=== PATIENT | male | born 1970 | race Caucasian/White ===

== ENCOUNTER 2016-12-27 20:23 | Emergency (ER) | payer BC, OTHER ==
[2016-12-27] MEDS ORDERED: IBUPROFEN 600 MG TAB As Ordered ONE (21:08)
--- NOTE | 2016-12-27 22:03 | EDDOCDS ---
Physician Documentation [facility] Name: Jin Chahal Age: 46 yrs Sex: Male : 1970 Arrival Date: 12/27/2016 Time: 20:23 Bed I8 / 16 Private MD: Cathleen Gleason Abdul Disposition: 12/27/16 21:46 Discharged to Home/Self Care. Impression: Intercostal pain. - Condition is Stable. - Discharge Instructions: Chest Wall Pain, Costochondritis. - Prescriptions for Ibuprofen 600 mg Oral Tablet - take 1 tablet by ORAL route every 6 hours As needed take with food; 30 tablet. - Medication Reconciliation, Local Pharmacy Hours form. - Follow up: Cathleen Gleason; When: 4 - 5 days; Reason: Recheck today's complaints, Continuance of care. - Problem is an ongoing problem. - Symptoms are unchanged. Historical: - Allergies: no known allergies; - Home Meds: 1. acetaminophen-codeine 300-30 mg oral tab every 4-6 hours 2. amoxicillin 875 mg Oral tab 1 tab every 12 hours - PMHx: Sleep Apnea w/ CPAP; - PSHx: Knee surgery- Right; - Social history: Smoking status: Patient states was never smoker of tobacco. No barriers to communication noted, The patient speaks fluent Divehi. - Family history: No immediate family members are acutely ill. - : The pt / caregiver states he / she is not on anticoagulants. Home medication list is obtained from the patient. - Exposure Risk Screening:: None identified. Vital Signs: 12/27 20:25 BP 131 / 80; Pulse 90; Resp 18 S; Temp 99.6(O); Pulse Ox 96% on R/A; Weight 83.91 kg / gr2 184.99 lbs (R); Height 6 ft. 0 in. (182.88 cm) (R); Pain 7/10; 22:00 BP 137 / 68; Pulse 87; Resp 17; Temp 98.2(TE); Pulse Ox 99% ; mb9 20:25 Body Mass Index 25.09 (83.91 kg, 182.88 cm) gr2 MDM: 20:42 ECG WITH READING ER PHYS+CARDIAG ordered. EDMS 21:07 Ibuprofen 600 mg PO once ordered. ke 21:08 Rib Unilat W/PA Chest Only Ordered. EDMS Administered Medications: 21:11 Drug: Ibuprofen 600 mg [ibuprofen 600 mg tablet (1 tabs)] Route: PO; af2 Signatures: Dispatcher [employer] EDNathaniel Tavera FNP FNP ke Smith, Mallory, RN RN ms18 Dashawn Holt RN RN mb9 Roxane Guzman RN af2 MTDD
--- NOTE | 2016-12-27 22:03 | EDDOCDS ---
Nurse's Notes [facility] Name: Jin Chahal Age: 46 yrs Sex: Male : 1970 Arrival Date: 12/27/2016 Time: 20:23 Bed I8 / 16 Private MD: Cathleen Gleason Abdul Diagnosis: Intercostal pain Presentation: 12/27 20:37 Presenting complaint: Patient states: that he has some pain to his L rib cage that ms18 started last night. Pt also c/o cough and fever. Pt also reports some SOB and sweating. Adult Sepsis Screening: The patient does not have new or worsening altered mentation. Patient's respiratory rate is less than 22. Systolic blood pressure is greater than 100. Patient has a qSOFA score of 0- Negative Sepsis Screen. Suicide/Homicide risk assessment- the patient denies having any suicidal and/or homicidal ideations and does not present with any other emotional, behavioral or mental health complaints. 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 Transition of care: patient was not received from another setting of care. 20:37 Acuity: REMY Level 3 ms18 20:37 Method Of Arrival: Walkin/Carried/Asstd ms18 Triage Assessment: 20:37 General: Appears in no apparent distress, comfortable, Behavior is appropriate for age, ms18 cooperative, pleasant. Pain: Location: diaphragm, left lateral anterior chest and left breast Pain currently is 7 out of 10 on a pain scale. HIV screening NA for this visit Offered previously. Neurological: No deficits noted. Respiratory: Airway is patent Respiratory effort is even, unlabored. Derm: Skin is pink, warm & dry. Historical: - Allergies: no known allergies; - Home Meds: 1. acetaminophen-codeine 300-30 mg oral tab every 4-6 hours 2. amoxicillin 875 mg Oral tab 1 tab every 12 hours - PMHx: Sleep Apnea w/ CPAP; - PSHx: Knee surgery- Right; - Social history: Smoking status: Patient states was never smoker of tobacco. No barriers to communication noted, The patient speaks fluent Brazilian. - Family history: No immediate family members are acutely ill. - : The pt / caregiver states he / she is not on anticoagulants. Home medication list is obtained from the patient. - Exposure Risk Screening:: None identified. Screenin:07 Screening information is obtained from the patient. Fall risk: No risks identified. mb9 Assistance ADL's: requires no assistance with activities of daily living. Abuse/DV Screen: The patient / caregiver reports he/she is: not in a situation that causes fear, pain or injury. Nutritional screening: No deficits noted. Advance Directives: There is no active DNR order. home support is adequate. Assessment: 21:07 General: Appears in no apparent distress, Behavior is appropriate for age, cooperative. mb9 Pain: Location: diaphragm Pain currently is 7 out of 10 on a pain scale. Respiratory: Airway is patent Respiratory effort is even, unlabored, Breath sounds are clear bilaterally. 22:00 Reassessment: Patient appears in no apparent distress at this time. General: Appears in mb9 no apparent distress, Behavior is fussy. Pain: Location: left lateral anterior chest Pain currently is 6 out of 10 on a pain scale. Respiratory: Airway is patent Respiratory effort is even, unlabored. Vital Signs: 20:25 BP 131 / 80; Pulse 90; Resp 18 S; Temp 99.6(O); Pulse Ox 96% on R/A; Weight 83.91 kg gr2 (R); Height 6 ft. 0 in. (182.88 cm) (R); Pain 7/10; 22:00 BP 137 / 68; Pulse 87; Resp 17; Temp 98.2(TE); Pulse Ox 99% ; mb9 20:25 Body Mass Index 25.09 (83.91 kg, 182.88 cm) gr2 Vitals: 20:25 Log In Time: December 27, 2016 at 20:25. gr2 ED Course: 20:24 Patient visited by Carolann Chinchilla. gr2 20:24 Cathleen Gleason is Private Physician. gr2 20:24 Patient moved to Waiting gr2 20:26 Patient visited by Carolann Chinchilla. gr2 20:26 Patient moved to Pre RCE gr2 20:38 Triage Initiated ms18 20:42 Patient moved to PR2 / 26 ms18 20:49 EKG done. (by ED staff). Reviewed by Fernando Rdz DO. mdr 20:50 Patient visited by Gary Juan PCA. mdr 20:50 Patient moved to Pre RCE ms18 20:57 Patient moved to I8 / 16 jmb 20:58 ElsNathaniel woodard FNP is [facility]. ke 20:58 Patient visited by Nathaniel Caldwell FNP. ke 20:59 Patient visited by Nathaniel Caldwell FNP. ke 21:07 The patient / caregiver is instructed regarding the plan of care and ED course. mb9 21:31 Patient visited by Nathaniel Caldwell FNP. ke 21:45 Cathleen Gleason is Referral Physician. ke 22:00 No IV's were initiated during this patient's visit. No procedures done that require mb9 assistance. Administered Medications: 21:11 Drug: Ibuprofen 600 mg [ibuprofen 600 mg tablet (1 tabs)] Route: PO; af2 Order Results: There are currently no results for this order. Outcome: 21:46 Discharge ordered by Provider. ke 22:00 Discharge Assessment: Patient awake, alert and oriented x 3. No cognitive and/or mb9 functional deficits noted. Patient verbalized understanding of disposition instructions. patient administered narcotics - no. The following High Risk Discharge criteria are identified: None. Discharged to home ambulatory. Condition: good Condition: stable Condition: improved. Discharge instructions given to patient, Instructed on discharge instructions, follow up and referral plans. medication usage, Demonstrated understanding of instructions, medications, Pt was receptive of discharge instructions/ teaching. Prescriptions given X 1. No special radiology studies were completed. Property :Personal belongings accompany Pt. 22:02 Patient left the ED. jael Signatures: Nathaniel Caldwell FNP FNP ke Raymond, Gainslee gr2 Joni MonRN RN Maria T Elliott,RN RN ms18 Dashawn Holt,RN RN mb9 Roxane Guzman RN RN af2 Gary Juan, RAYMOND WOODWORK SALVAGE INSPECTOR mdr MTDD
--- NOTE | 2016-12-27 22:04 | ECGEPIP ---
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
--- NOTE | 2016-12-28 08:13 | REP ---
Clinical: Chest pain Technique: Frontal view of the chest with multiple views of the left hemithorax. Findings: Frontal view of the chest demonstrates bibasilar atelectasis (left greater than right) and small pleural effusion/reaction cannot be excluded. No pneumothorax. Multiple views of the left hemithorax demonstrates no obvious acute rib fracture or pathology. Impression: Bibasilar atelectasis and possible small pleural reaction. No left rib fracture. Signed by Berry Jones MD 12/28/2016 08:04 A
--- NOTE | 2016-12-29 23:03 | EDDOCDS ---
Nurse's Notes [facility] Name: Reinier Chahal Age: 46 yrs Sex: Male : 1970 Arrival Date: 12/27/2016 Time: 20:23 Bed I8 / 16 Private MD: Cathleen Gleason Abdul Diagnosis: Intercostal pain Presentation: 12/27 20:37 Presenting complaint: Patient states: that he has some pain to his L rib cage that ms18 started last night. Pt also c/o cough and fever. Pt also reports some SOB and sweating. Adult Sepsis Screening: The patient does not have new or worsening altered mentation. Patient's respiratory rate is less than 22. Systolic blood pressure is greater than 100. Patient has a qSOFA score of 0- Negative Sepsis Screen. Suicide/Homicide risk assessment- the patient denies having any suicidal and/or homicidal ideations and does not present with any other emotional, behavioral or mental health complaints. 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 Transition of care: patient was not received from another setting of care. 20:37 Acuity: REMY Level 3 ms18 20:37 Method Of Arrival: Walkin/Carried/Asstd ms18 Triage Assessment: 20:37 General: Appears in no apparent distress, comfortable, Behavior is appropriate for age, ms18 cooperative, pleasant. Pain: Location: diaphragm, left lateral anterior chest and left breast Pain currently is 7 out of 10 on a pain scale. HIV screening NA for this visit Offered previously. Neurological: No deficits noted. Respiratory: Airway is patent Respiratory effort is even, unlabored. Derm: Skin is pink, warm & dry. Historical: - Allergies: no known allergies; - Home Meds: 1. acetaminophen-codeine 300-30 mg oral tab every 4-6 hours 2. amoxicillin 875 mg Oral tab 1 tab every 12 hours - PMHx: Sleep Apnea w/ CPAP; - PSHx: Knee surgery- Right; - Social history: Smoking status: Patient states was never smoker of tobacco. No barriers to communication noted, The patient speaks fluent Venezuelan. - Family history: No immediate family members are acutely ill. - : The pt / caregiver states he / she is not on anticoagulants. Home medication list is obtained from the patient. - Exposure Risk Screening:: None identified. Screenin:07 Screening information is obtained from the patient. Fall risk: No risks identified. mb9 Assistance ADL's: requires no assistance with activities of daily living. Abuse/DV Screen: The patient / caregiver reports he/she is: not in a situation that causes fear, pain or injury. Nutritional screening: No deficits noted. Advance Directives: There is no active DNR order. home support is adequate. Assessment: 21:07 General: Appears in no apparent distress, Behavior is appropriate for age, cooperative. mb9 Pain: Location: diaphragm Pain currently is 7 out of 10 on a pain scale. Respiratory: Airway is patent Respiratory effort is even, unlabored, Breath sounds are clear bilaterally. 22:00 Reassessment: Patient appears in no apparent distress at this time. General: Appears in mb9 no apparent distress, Behavior is fussy. Pain: Location: left lateral anterior chest Pain currently is 6 out of 10 on a pain scale. Respiratory: Airway is patent Respiratory effort is even, unlabored. Vital Signs: 20:25 BP 131 / 80; Pulse 90; Resp 18 S; Temp 99.6(O); Pulse Ox 96% on R/A; Weight 83.91 kg gr2 (R); Height 6 ft. 0 in. (182.88 cm) (R); Pain 7/10; 22:00 BP 137 / 68; Pulse 87; Resp 17; Temp 98.2(TE); Pulse Ox 99% ; mb9 20:25 Body Mass Index 25.09 (83.91 kg, 182.88 cm) gr2 Vitals: 20:25 Log In Time: December 27, 2016 at 20:25. gr2 ED Course: 20:24 Patient visited by Carolann Chinchilla. gr2 20:24 Cathleen Gleason is Private Physician. gr2 20:24 Patient moved to Waiting gr2 20:26 Patient visited by Carolann Chinchilla. gr2 20:26 Patient moved to Pre RCE gr2 20:38 Triage Initiated ms18 20:42 Patient moved to PR2 / 26 ms18 20:49 EKG done. (by ED staff). Reviewed by Rita Hodges DO. mdr 20:50 Patient visited by Gary Juan PCA. mdr 20:50 Patient moved to Pre RCE ms18 20:57 Patient moved to I8 / 16 jmb 20:58 ElsNathaniel woodard FNP is [facility]. ke 20:58 Patient visited by Nathaniel Caldwell FNP. ke 20:59 Patient visited by Nathaniel Caldwell FNP. ke 21:07 The patient / caregiver is instructed regarding the plan of care and ED course. mb9 21:31 Patient visited by Nathaniel Caldwell FNP. ke 21:45 Cathleen Gleason is Referral Physician. ke 22:00 No IV's were initiated during this patient's visit. No procedures done that require mb9 assistance. 22:35 EKG-ADULT Returned. EDMS 22:46 [facility] Payment Agreement was scanned into [employer] and attached to record. gjb 12/28 08:33 Rib Unilat W/PA Chest Only Returned. EDMS 13:17 T-Sheet-- Draft Copy was scanned into [employer] and attached to record. gb 13:18 ECG/EKG was scanned into [employer] and attached to record. 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: ; : 1970 Requested By: RITA HODGES; Order Number: [id number] Reading MD: Hugo Poon; Measurements; Intervals [place]; Rate: 80 P: 48; NH: 179 QRS: 28; QRSD: 89 T: 55; QT: 368; QTc: 426; Interpretive Statements; SINUS RHYTHM; ; ; Electronically Signed On 12-27-2016 22:03:41 EST by Hugo Poon; Radiology Order: Rib Unilat W/PA Chest Only Test: Rib Unilat W/PA Chest Only REASON FOR EXAMINATION: Chest Pain; Clinical: Chest pain; ; Technique: Frontal view of the chest with multiple views of the left; hemithorax.; ; Findings:; Frontal view of the chest demonstrates bibasilar atelectasis (left greater than; right) and small pleural effusion/reaction cannot be excluded. No pneumothorax.; Multiple views of the left hemithorax demonstrates no obvious acute rib fracture; or pathology.; ; Impression:; Bibasilar atelectasis and possible small pleural reaction.; No left rib fracture.; ; ; Signed by; Berry Jones MD 12/28/2016 08:04 A; Outcome: 21:46 Discharge ordered by Provider. sofia 22:00 Discharge Assessment: Patient awake, alert and oriented x 3. No cognitive and/or mb9 functional deficits noted. Patient verbalized understanding of disposition instructions. patient administered narcotics - no. The following High Risk Discharge criteria are identified: None. Discharged to home ambulatory. Condition: good Condition: stable Condition: improved. Discharge instructions given to patient, Instructed on discharge instructions, follow up and referral plans. medication usage, Demonstrated understanding of instructions, medications, Pt was receptive of discharge instructions/ teaching. Prescriptions given X 1. No special radiology studies were completed. Property :Personal belongings accompany Pt. 22:02 Patient left the ED. mb9 Signatures: Dispatcher [employer] EDMS Paris Arias, Reg Reg gb Nathaniel Caldwell, SLING OPERATOR SLING OPERATOR ke Carolann Chinchilla gr2 Joni MonRN RN Maria T Elliott,RN RN ms18 Dashawn Holt,RN RN mb9 Roxane Guzman RN RN af2 Gary Juan, RAYMOND MANAGER SIX SIGMA Kathy Perez Chart Complete MTDD
--- NOTE | 2016-12-29 23:03 | EDDOCDS ---
Physician Documentation [facility] Name: Jin Chahal Age: 46 yrs Sex: Male : 1970 Arrival Date: 12/27/2016 Time: 20:23 Bed I8 / 16 Private MD: Cathleen Gleason Abdul Disposition: 12/27/16 21:46 Discharged to Home/Self Care. Impression: Intercostal pain. - Condition is Stable. - Discharge Instructions: Chest Wall Pain, Costochondritis. - Prescriptions for Ibuprofen 600 mg Oral Tablet - take 1 tablet by ORAL route every 6 hours As needed take with food; 30 tablet. - Medication Reconciliation, Local Pharmacy Hours form. - Follow up: Cathleen Gleason; When: 4 - 5 days; Reason: Recheck today's complaints, Continuance of care. - Problem is an ongoing problem. - Symptoms are unchanged. Historical: - Allergies: no known allergies; - Home Meds: 1. acetaminophen-codeine 300-30 mg oral tab every 4-6 hours 2. amoxicillin 875 mg Oral tab 1 tab every 12 hours - PMHx: Sleep Apnea w/ CPAP; - PSHx: Knee surgery- Right; - Social history: Smoking status: Patient states was never smoker of tobacco. No barriers to communication noted, The patient speaks fluent Azeri. - Family history: No immediate family members are acutely ill. - : The pt / caregiver states he / she is not on anticoagulants. Home medication list is obtained from the patient. - Exposure Risk Screening:: None identified. Vital Signs: 12/27 20:25 BP 131 / 80; Pulse 90; Resp 18 S; Temp 99.6(O); Pulse Ox 96% on R/A; Weight 83.91 kg / gr2 184.99 lbs (R); Height 6 ft. 0 in. (182.88 cm) (R); Pain 7/10; 22:00 BP 137 / 68; Pulse 87; Resp 17; Temp 98.2(TE); Pulse Ox 99% ; mb9 20:25 Body Mass Index 25.09 (83.91 kg, 182.88 cm) gr2 MDM: 20:42 ECG WITH READING ER PHYS+CARDIAG ordered. EDMS 21:07 Ibuprofen 600 mg PO once ordered. ke 21:08 Rib Unilat W/PA Chest Only Ordered. EDMS 22:46 [facility] Payment Agreement was scanned into [employer] and attached to record. [facility] 22:46 Financial registration complete. [facility] 12/28 13:17 T-Sheet-- Draft Copy was scanned into [employer] and attached to record. gb 13:18 ECG/EKG was scanned into [employer] and attached to record. gb Administered Medications: 12/27 21:11 Drug: Ibuprofen 600 mg [ibuprofen 600 mg tablet (1 tabs)] Route: PO; af2 Signatures: Dispatcher [employer] EDMS Paris Arias, Reg Reg gb Nathaniel Caldwell, MOTOR BRAKEMAN Maria T Sprague RN RN ms18 Dashawn Holt RN RN mb9 Kathy Castaneda b Roxane Guzman RN af2 The chart was reviewed and I authenticate all verbal orders and agree with the evaluation and treatment provided.Attachments: 22:46 [facility] Payment Agreement [facility] 12/28 13:17 T-Sheet-- Draft Copy gb 13:18 ECG/EKG gb Chart Complete MTDD
--- NOTE | 2016-12-29 23:03 | EDDOCDS ---
Physician Documentation [facility] Name: Jin Chahal Age: 46 yrs Sex: Male : 1970 Arrival Date: 12/27/2016 Time: 20:23 Bed I8 / 16 Private MD: Cathleen Gleason Abdul Disposition: 12/27/16 21:46 Discharged to Home/Self Care. Impression: Intercostal pain. - Condition is Stable. - Discharge Instructions: Chest Wall Pain, Costochondritis. - Prescriptions for Ibuprofen 600 mg Oral Tablet - take 1 tablet by ORAL route every 6 hours As needed take with food; 30 tablet. - Medication Reconciliation, Local Pharmacy Hours form. - Follow up: Cathleen Gleason; When: 4 - 5 days; Reason: Recheck today's complaints, Continuance of care. - Problem is an ongoing problem. - Symptoms are unchanged. Historical: - Allergies: no known allergies; - Home Meds: 1. acetaminophen-codeine 300-30 mg oral tab every 4-6 hours 2. amoxicillin 875 mg Oral tab 1 tab every 12 hours - PMHx: Sleep Apnea w/ CPAP; - PSHx: Knee surgery- Right; - Social history: Smoking status: Patient states was never smoker of tobacco. No barriers to communication noted, The patient speaks fluent Greek. - Family history: No immediate family members are acutely ill. - : The pt / caregiver states he / she is not on anticoagulants. Home medication list is obtained from the patient. - Exposure Risk Screening:: None identified. Vital Signs: 12/27 20:25 BP 131 / 80; Pulse 90; Resp 18 S; Temp 99.6(O); Pulse Ox 96% on R/A; Weight 83.91 kg / gr2 184.99 lbs (R); Height 6 ft. 0 in. (182.88 cm) (R); Pain 7/10; 22:00 BP 137 / 68; Pulse 87; Resp 17; Temp 98.2(TE); Pulse Ox 99% ; mb9 20:25 Body Mass Index 25.09 (83.91 kg, 182.88 cm) gr2 MDM: 20:42 ECG WITH READING ER PHYS+CARDIAG ordered. EDMS 21:07 Ibuprofen 600 mg PO once ordered. ke 21:08 Rib Unilat W/PA Chest Only Ordered. EDMS 22:46 [facility] Payment Agreement was scanned into [employer] and attached to record. [facility] 22:46 Financial registration complete. [facility] 12/28 13:17 T-Sheet-- Draft Copy was scanned into [employer] and attached to record. gb 13:18 ECG/EKG was scanned into [employer] and attached to record. gb Administered Medications: 12/27 21:11 Drug: Ibuprofen 600 mg [ibuprofen 600 mg tablet (1 tabs)] Route: PO; af2 Signatures: Dispatcher [employer] EDMS Paris Arias, Reg Reg gb Nathaniel Caldwell, CADDY/CADDIE SUPERVISOR Maria T Sprague RN RN ms18 Dashawn Holt RN RN mb9 Kathy Castaneda b Roxane Guzman RN af2 The chart was reviewed and I authenticate all verbal orders and agree with the evaluation and treatment provided.Attachments: 22:46 [facility] Payment Agreement [facility] 12/28 13:17 T-Sheet-- Draft Copy gb 13:18 ECG/EKG gb Chart Complete MTDD
--- NOTE | 2017-01-01 11:20 | EDDOCDS ---
Physician Documentation [facility] Name: Jin Chahal Age: 46 yrs Sex: Male : 1970 Arrival Date: 12/27/2016 Time: 20:23 Bed I8 / 16 Private MD: Cathleen Gleason Abdul Disposition: 12/27/16 21:46 Discharged to Home/Self Care. Impression: Intercostal pain. - Condition is Stable. - Discharge Instructions: Chest Wall Pain, Costochondritis. - Prescriptions for Ibuprofen 600 mg Oral Tablet - take 1 tablet by ORAL route every 6 hours As needed take with food; 30 tablet. - Medication Reconciliation, Local Pharmacy Hours form. - Follow up: Cathleen Gleason; When: 4 - 5 days; Reason: Recheck today's complaints, Continuance of care. - Problem is an ongoing problem. - Symptoms are unchanged. Historical: - Allergies: no known allergies; - Home Meds: 1. acetaminophen-codeine 300-30 mg oral tab every 4-6 hours 2. amoxicillin 875 mg Oral tab 1 tab every 12 hours - PMHx: Sleep Apnea w/ CPAP; - PSHx: Knee surgery- Right; - Social history: Smoking status: Patient states was never smoker of tobacco. No barriers to communication noted, The patient speaks fluent Welsh. - Family history: No immediate family members are acutely ill. - : The pt / caregiver states he / she is not on anticoagulants. Home medication list is obtained from the patient. - Exposure Risk Screening:: None identified. Vital Signs: 12/27 20:25 BP 131 / 80; Pulse 90; Resp 18 S; Temp 99.6(O); Pulse Ox 96% on R/A; Weight 83.91 kg / gr2 184.99 lbs (R); Height 6 ft. 0 in. (182.88 cm) (R); Pain 7/10; 22:00 BP 137 / 68; Pulse 87; Resp 17; Temp 98.2(TE); Pulse Ox 99% ; mb9 20:25 Body Mass Index 25.09 (83.91 kg, 182.88 cm) gr2 MDM: 20:42 ECG WITH READING ER PHYS+CARDIAG ordered. EDMS 21:07 Ibuprofen 600 mg PO once ordered. ke 21:08 Rib Unilat W/PA Chest Only Ordered. EDMS 22:46 [facility] [place] Payment Agreement was scanned into [employer] and attached to record. [facility] 22:46 Financial registration complete. [facility] 12/28 13:17 T-Sheet-- Draft Copy was scanned into MEDHOST and attached to record. gb 13:18 ECG/EKG was scanned into MEDHOST and attached to record. gb Administered Medications: 12/27 21:11 Drug: Ibuprofen 600 mg [ibuprofen 600 mg tablet (1 tabs)] Route: PO; af2 Signatures: Dispatcher MedHost EDMS Paris Arias, Reg Reg gb Nathaniel Caldwell, POWER SHOVEL MECHANIC Maria T Sprague RN RN ms18 Dashawn Holt RN RN mb9 Kathy Castaneda b Roxane Guzman RN af2 The chart was reviewed and I authenticate all verbal orders and agree with the evaluation and treatment provided.Attachments: 22:46 [facility] Payment Agreement [facility] 12/28 13:17 T-Sheet-- Draft Copy gb 13:18 ECG/EKG gb MTDD
--- NOTE | 2017-01-01 11:20 | EDDOCDS ---
Nurse's Notes [facility] Name: Reinier Montoya Age: 46 yrs Sex: Male : 1970 Arrival Date: 12/27/2016 Time: 20:23 Bed I8 / 16 Private MD: Cathleen Gleason Abdul Diagnosis: Intercostal pain Presentation: 12/27 20:37 Presenting complaint: Patient states: that he has some pain to his L rib cage that ms18 started last night. Pt also c/o cough and fever. Pt also reports some SOB and sweating. Adult Sepsis Screening: The patient does not have new or worsening altered mentation. Patient's respiratory rate is less than 22. Systolic blood pressure is greater than 100. Patient has a qSOFA score of 0- Negative Sepsis Screen. Suicide/Homicide risk assessment- the patient denies having any suicidal and/or homicidal ideations and does not present with any other emotional, behavioral or mental health complaints. Status: Patient is not a director of casework services or dependent. Transition of care: patient was not received from another setting of care. 20:37 Acuity: REMY Level 3 ms18 20:37 Method Of Arrival: Walkin/Carried/Asstd ms18 Triage Assessment: 20:37 General: Appears in no apparent distress, comfortable, Behavior is appropriate for age, ms18 cooperative, pleasant. Pain: Location: diaphragm, left lateral anterior chest and left breast Pain currently is 7 out of 10 on a pain scale. HIV screening NA for this visit Offered previously. Neurological: No deficits noted. Respiratory: Airway is patent Respiratory effort is even, unlabored. Derm: Skin is pink, warm & dry. Historical: - Allergies: no known allergies; - Home Meds: 1. acetaminophen-codeine 300-30 mg oral tab every 4-6 hours 2. amoxicillin 875 mg Oral tab 1 tab every 12 hours - PMHx: Sleep Apnea w/ CPAP; - PSHx: Knee surgery- Right; - Social history: Smoking status: Patient states was never smoker of tobacco. No barriers to communication noted, The patient speaks fluent Grenadian. - Family history: No immediate family members are acutely ill. - : The pt / caregiver states he / she is not on anticoagulants. Home medication list is obtained from the patient. - Exposure Risk Screening:: None identified. Screenin:07 Screening information is obtained from the patient. Fall risk: No risks identified. mb9 Assistance ADL's: requires no assistance with activities of daily living. Abuse/DV Screen: The patient / caregiver reports he/she is: not in a situation that causes fear, pain or injury. Nutritional screening: No deficits noted. Advance Directives: There is no active DNR order. home support is adequate. Assessment: 21:07 General: Appears in no apparent distress, Behavior is appropriate for age, cooperative. mb9 Pain: Location: diaphragm Pain currently is 7 out of 10 on a pain scale. Respiratory: Airway is patent Respiratory effort is even, unlabored, Breath sounds are clear bilaterally. 22:00 Reassessment: Patient appears in no apparent distress at this time. General: Appears in mb9 no apparent distress, Behavior is fussy. Pain: Location: left lateral anterior chest Pain currently is 6 out of 10 on a pain scale. Respiratory: Airway is patent Respiratory effort is even, unlabored. Vital Signs: 20:25 BP 131 / 80; Pulse 90; Resp 18 S; Temp 99.6(O); Pulse Ox 96% on R/A; Weight 83.91 kg gr2 (R); Height 6 ft. 0 in. (182.88 cm) (R); Pain 7/10; 22:00 BP 137 / 68; Pulse 87; Resp 17; Temp 98.2(TE); Pulse Ox 99% ; mb9 20:25 Body Mass Index 25.09 (83.91 kg, 182.88 cm) gr2 Vitals: 20:25 Log In Time: December 27, 2016 at 20:25. gr2 ED Course: 20:24 Patient visited by Carolann Chinchilla. gr2 20:24 Cathleen Gleason is Private Physician. gr2 20:24 Patient moved to Waiting gr2 20:26 Patient visited by Carolann Chinchilla. gr2 20:26 Patient moved to Pre RCE gr2 20:38 Triage Initiated ms18 20:42 Patient moved to PR2 / 26 ms18 20:49 EKG done. (by ED staff). Reviewed by Rita Hodges DO. mdr 20:50 Patient visited by Gary Juan PCA. mdr 20:50 Patient moved to Pre RCE ms18 20:57 Patient moved to I8 / 16 jmb 20:58 ElsNathaniel woodard FNP [facility] ke 20:58 Patient visited by Nathaniel Caldwell FNP. ke 20:59 Patient visited by Nathaniel Caldwell FNP. ke 21:07 The patient / caregiver is instructed regarding the plan of care and ED course. mb9 21:31 Patient visited by Nathaniel Caldwell FNP. ke 21:45 Cathleen Gleason is Referral Physician. ke 22:00 No IV's were initiated during this patient's visit. No procedures done that require mb9 assistance. 22:35 EKG-ADULT Returned. EDMS 22:46 [facility] Payment Agreement was scanned into WorldPassKey and attached to record. gjb 12/28 08:33 Rib Unilat W/PA Chest Only Returned. EDMS 13:17 T-Sheet-- Draft Copy was scanned into WorldPass[employer] and attached to record. gb 13:18 ECG/EKG was scanned into WorldPass[employer] and attached to record. 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: ; : 1970 Requested By: RITA HODGES; Order Number: [id number] Reading MD: Hugo Poon; Measurements; Intervals [place]; Rate: 80 P: 48; MS: 179 QRS: 28; QRSD: 89 T: 55; QT: 368; QTc: 426; Interpretive Statements; SINUS RHYTHM; ; ; Electronically Signed On 12-27-2016 22:03:41 EST by Hugo Poon; Radiology Order: Rib Unilat W/PA Chest Only Test: Rib Unilat W/PA Chest Only REASON FOR EXAMINATION: Chest Pain; Clinical: Chest pain; ; Technique: Frontal view of the chest with multiple views of the left; hemithorax.; ; Findings:; Frontal view of the chest demonstrates bibasilar atelectasis (left greater than; right) and small pleural effusion/reaction cannot be excluded. No pneumothorax.; Multiple views of the left hemithorax demonstrates no obvious acute rib fracture; or pathology.; ; Impression:; Bibasilar atelectasis and possible small pleural reaction.; No left rib fracture.; ; ; Signed by; Berry Jones MD 12/28/2016 08:04 A; Outcome: 21:46 Discharge ordered by Provider. sofia 22:00 Discharge Assessment: Patient awake, alert and oriented x 3. No cognitive and/or mb9 functional deficits noted. Patient verbalized understanding of disposition instructions. patient administered narcotics - no. The following High Risk Discharge criteria are identified: None. Discharged to home ambulatory. Condition: good Condition: stable Condition: improved. Discharge instructions given to patient, Instructed on discharge instructions, follow up and referral plans. medication usage, Demonstrated understanding of instructions, medications, Pt was receptive of discharge instructions/ teaching. Prescriptions given X 1. No special radiology studies were completed. Property :Personal belongings accompany Pt. 22:02 Patient left the ED. mb9 Addendum: 01/01/2017 11:14 Narrative: X-ray results from 12/27/2016 reviewed with Anton Caldwell COUTIERIER on 12/29/2016 with malvin Ortega, market research specialist Nurse that day. Message left that day for patient to call us and be given recommendations of f/u with PCP for repeat CXR. No response back from patient and another message left at patient's residence ([phone]). Signatures: Dispatcher MedHost EDMS Jackie Patterson RN RN Paris Wharton, Reg Reg gb Nathaniel Caldwell, STAFF INTERPRETER STAFF INTERPRETER Carolann Perez gr2 Joni MonRN RN Maria T Elliott,ALEISHA RN ms18 Dashawn Holt,ALEISHA RN mb9 Roxane Guzman RN RN af2 Gary Juan, [facility] REG[employer]AL AGRONOMIST Kathy Perez MTDD
--- NOTE | 2017-01-01 11:20 | EDDOCDS ---
Physician Documentation [facility] Name: Jin Chahal Age: 46 yrs Sex: Male : 1970 Arrival Date: 12/27/2016 Time: 20:23 Bed I8 / 16 Private MD: Cathleen Gleason Abdul Disposition: 12/27/16 21:46 Discharged to Home/Self Care. Impression: Intercostal pain. - Condition is Stable. - Discharge Instructions: Chest Wall Pain, Costochondritis. - Prescriptions for Ibuprofen 600 mg Oral Tablet - take 1 tablet by ORAL route every 6 hours As needed take with food; 30 tablet. - Medication Reconciliation, Local Pharmacy Hours form. - Follow up: Cathleen Gleason; When: 4 - 5 days; Reason: Recheck today's complaints, Continuance of care. - Problem is an ongoing problem. - Symptoms are unchanged. Historical: - Allergies: no known allergies; - Home Meds: 1. acetaminophen-codeine 300-30 mg oral tab every 4-6 hours 2. amoxicillin 875 mg Oral tab 1 tab every 12 hours - PMHx: Sleep Apnea w/ CPAP; - PSHx: Knee surgery- Right; - Social history: Smoking status: Patient states was never smoker of tobacco. No barriers to communication noted, The patient speaks fluent Korean. - Family history: No immediate family members are acutely ill. - : The pt / caregiver states he / she is not on anticoagulants. Home medication list is obtained from the patient. - Exposure Risk Screening:: None identified. Vital Signs: 12/27 20:25 BP 131 / 80; Pulse 90; Resp 18 S; Temp 99.6(O); Pulse Ox 96% on R/A; Weight 83.91 kg / gr2 184.99 lbs (R); Height 6 ft. 0 in. (182.88 cm) (R); Pain 7/10; 22:00 BP 137 / 68; Pulse 87; Resp 17; Temp 98.2(TE); Pulse Ox 99% ; mb9 20:25 Body Mass Index 25.09 (83.91 kg, 182.88 cm) gr2 MDM: 20:42 ECG WITH READING ER PHYS+CARDIAG ordered. EDMS 21:07 Ibuprofen 600 mg PO once ordered. ke 21:08 Rib Unilat W/PA Chest Only Ordered. EDMS 22:46 [facility] [place] [place] Payment Agreement was scanned into ITN and attached to record. [facility] 22:46 Financial registration complete. [facility] 12/28 13:17 T-Sheet-- Draft Copy was scanned into MEDHOST and attached to record. gb 13:18 ECG/EKG was scanned into MEDHOST and attached to record. gb Administered Medications: 12/27 21:11 Drug: Ibuprofen 600 mg [ibuprofen 600 mg tablet (1 tabs)] Route: PO; af2 Signatures: Dispatcher MedHost EDMS Paris Arias, Reg Reg gb Nathaniel Caldwell, STRATEGIC MARKETING MANAGER Maria T Sprague RN RN ms18 Dashawn Holt RN RN mb9 Kathy Castaneda b Roxane Guzman RN af2 The chart was reviewed and I authenticate all verbal orders and agree with the evaluation and treatment provided.Attachments: 22:46 [facility] Payment Agreement [facility] 12/28 13:17 T-Sheet-- Draft Copy gb 13:18 ECG/EKG gb MTDD
--- NOTE | 2017-01-01 11:21 | EDDOCDS ---
Physician Documentation [facility] Name: Jin Chahal Age: 46 yrs Sex: Male : 1970 Arrival Date: 12/27/2016 Time: 20:23 Bed I8 / 16 Private MD: Cathleen Gleason Abdul Disposition: 12/27/16 21:46 Discharged to Home/Self Care. Impression: Intercostal pain. - Condition is Stable. - Discharge Instructions: Chest Wall Pain, Costochondritis. - Prescriptions for Ibuprofen 600 mg Oral Tablet - take 1 tablet by ORAL route every 6 hours As needed take with food; 30 tablet. - Medication Reconciliation, Local Pharmacy Hours form. - Follow up: Cathleen Gleason; When: 4 - 5 days; Reason: Recheck today's complaints, Continuance of care. - Problem is an ongoing problem. - Symptoms are unchanged. Historical: - Allergies: no known allergies; - Home Meds: 1. acetaminophen-codeine 300-30 mg oral tab every 4-6 hours 2. amoxicillin 875 mg Oral tab 1 tab every 12 hours - PMHx: Sleep Apnea w/ CPAP; - PSHx: Knee surgery- Right; - Social history: Smoking status: Patient states was never smoker of tobacco. No barriers to communication noted, The patient speaks fluent Spanish. - Family history: No immediate family members are acutely ill. - : The pt / caregiver states he / she is not on anticoagulants. Home medication list is obtained from the patient. - Exposure Risk Screening:: None identified. Vital Signs: 12/27 20:25 BP 131 / 80; Pulse 90; Resp 18 S; Temp 99.6(O); Pulse Ox 96% on R/A; Weight 83.91 kg / gr2 184.99 lbs (R); Height 6 ft. 0 in. (182.88 cm) (R); Pain 7/10; 22:00 BP 137 / 68; Pulse 87; Resp 17; Temp 98.2(TE); Pulse Ox 99% ; mb9 20:25 Body Mass Index 25.09 (83.91 kg, 182.88 cm) gr2 MDM: 20:42 ECG WITH READING ER PHYS+CARDIAG ordered. EDMS 21:07 Ibuprofen 600 mg PO once ordered. ke 21:08 Rib Unilat W/PA Chest Only Ordered. EDMS 22:46 [facility] Payment Agreement was scanned into [employer] and attached to record. [facility] 22:46 Financial registration complete. [facility] 12/28 13:17 T-Sheet-- Draft Copy was scanned into MEDHOST and attached to record. gb 13:18 ECG/EKG was scanned into MEDHOST and attached to record. gb Administered Medications: 12/27 21:11 Drug: Ibuprofen 600 mg [ibuprofen 600 mg tablet (1 tabs)] Route: PO; af2 Signatures: Dispatcher MedHost EDMS Paris Arias, Reg Reg gb Nathaniel Caldwell, MAT CUTTER Maria T Sprague RN RN ms18 Dashawn Holt RN RN mb9 Kathy Castaneda b Roxane Guzman RN af2 The chart was reviewed and I authenticate all verbal orders and agree with the evaluation and treatment provided.Attachments: 22:46 [facility] Payment Agreement [facility] 12/28 13:17 T-Sheet-- Draft Copy gb 13:18 ECG/EKG gb Chart Complete MTDD
--- NOTE | 2017-01-01 11:21 | EDDOCDS ---
Nurse's Notes [facility] Name: Reinier Montoya Age: 46 yrs Sex: Male : 1970 Arrival Date: 12/27/2016 Time: 20:23 Bed I8 / 16 Private MD: Cathleen Gleason Abdul Diagnosis: Intercostal pain Presentation: 12/27 20:37 Presenting complaint: Patient states: that he has some pain to his L rib cage that ms18 started last night. Pt also c/o cough and fever. Pt also reports some SOB and sweating. Adult Sepsis Screening: The patient does not have new or worsening altered mentation. Patient's respiratory rate is less than 22. Systolic blood pressure is greater than 100. Patient has a qSOFA score of 0- Negative Sepsis Screen. Suicide/Homicide risk assessment- the patient denies having any suicidal and/or homicidal ideations and does not present with any other emotional, behavioral or mental health complaints. 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 Transition of care: patient was not received from another setting of care. 20:37 Acuity: REMY Level 3 ms18 20:37 Method Of Arrival: Walkin/Carried/Asstd ms18 Triage Assessment: 20:37 General: Appears in no apparent distress, comfortable, Behavior is appropriate for age, ms18 cooperative, pleasant. Pain: Location: diaphragm, left lateral anterior chest and left breast Pain currently is 7 out of 10 on a pain scale. HIV screening NA for this visit Offered previously. Neurological: No deficits noted. Respiratory: Airway is patent Respiratory effort is even, unlabored. Derm: Skin is pink, warm & dry. Historical: - Allergies: no known allergies; - Home Meds: 1. acetaminophen-codeine 300-30 mg oral tab every 4-6 hours 2. amoxicillin 875 mg Oral tab 1 tab every 12 hours - PMHx: Sleep Apnea w/ CPAP; - PSHx: Knee surgery- Right; - Social history: Smoking status: Patient states was never smoker of tobacco. No barriers to communication noted, The patient speaks fluent Chinese. - Family history: No immediate family members are acutely ill. - : The pt / caregiver states he / she is not on anticoagulants. Home medication list is obtained from the patient. - Exposure Risk Screening:: None identified. Screenin:07 Screening information is obtained from the patient. Fall risk: No risks identified. mb9 Assistance ADL's: requires no assistance with activities of daily living. Abuse/DV Screen: The patient / caregiver reports he/she is: not in a situation that causes fear, pain or injury. Nutritional screening: No deficits noted. Advance Directives: There is no active DNR order. home support is adequate. Assessment: 21:07 General: Appears in no apparent distress, Behavior is appropriate for age, cooperative. mb9 Pain: Location: diaphragm Pain currently is 7 out of 10 on a pain scale. Respiratory: Airway is patent Respiratory effort is even, unlabored, Breath sounds are clear bilaterally. 22:00 Reassessment: Patient appears in no apparent distress at this time. General: Appears in mb9 no apparent distress, Behavior is fussy. Pain: Location: left lateral anterior chest Pain currently is 6 out of 10 on a pain scale. Respiratory: Airway is patent Respiratory effort is even, unlabored. Vital Signs: 20:25 BP 131 / 80; Pulse 90; Resp 18 S; Temp 99.6(O); Pulse Ox 96% on R/A; Weight 83.91 kg gr2 (R); Height 6 ft. 0 in. (182.88 cm) (R); Pain 7/10; 22:00 BP 137 / 68; Pulse 87; Resp 17; Temp 98.2(TE); Pulse Ox 99% ; mb9 20:25 Body Mass Index 25.09 (83.91 kg, 182.88 cm) gr2 Vitals: 20:25 Log In Time: December 27, 2016 at 20:25. gr2 ED Course: 20:24 Patient visited by Carolann Chinchilla. gr2 20:24 Cathleen Gleason is Private Physician. gr2 20:24 Patient moved to Waiting gr2 20:26 Patient visited by Carolann Chinchilla. gr2 20:26 Patient moved to Pre RCE gr2 20:38 Triage Initiated ms18 20:42 Patient moved to PR2 / 26 ms18 20:49 EKG done. (by ED staff). Reviewed by Rtia Hodges DO. mdr 20:50 Patient visited by Gary Juan PCA. mdr 20:50 Patient moved to Pre RCE ms18 20:57 Patient moved to I8 / 16 jmb 20:58 ElsNathaniel woodard FNP is [facility]. ke 20:58 Patient visited by Nathaniel Caldwell FNP. ke 20:59 Patient visited by Nathaniel Caldwell FNP. ke 21:07 The patient / caregiver is instructed regarding the plan of care and ED course. mb9 21:31 Patient visited by Nathaniel Caldwell FNP. ke 21:45 Cathleen Gleason is Referral Physician. ke 22:00 No IV's were initiated during this patient's visit. No procedures done that require mb9 assistance. 22:35 EKG-ADULT Returned. EDMS 22:46 [place] Payment Agreement was scanned into [employer] and attached to record. gjb 12/28 08:33 Rib Unilat W/PA Chest Only Returned. EDMS 13:17 T-Sheet-- Draft Copy was scanned into [employer] and attached to record. gb 13:18 ECG/EKG was scanned into [employer] and attached to record. 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: ; : 1970 Requested By: RITA HODGES; Order Number: [id number] Reading MD: Hugo Poon; Measurements; Intervals [place]; Rate: 80 P: 48; FL: 179 QRS: 28; QRSD: 89 T: 55; QT: 368; QTc: 426; Interpretive Statements; SINUS RHYTHM; ; ; Electronically Signed On 12-27-2016 22:03:41 EST by Hugo Poon; Radiology Order: Rib Unilat W/PA Chest Only Test: Rib Unilat W/PA Chest Only REASON FOR EXAMINATION: Chest Pain; Clinical: Chest pain; ; Technique: Frontal view of the chest with multiple views of the left; hemithorax.; ; Findings:; Frontal view of the chest demonstrates bibasilar atelectasis (left greater than; right) and small pleural effusion/reaction cannot be excluded. No pneumothorax.; Multiple views of the left hemithorax demonstrates no obvious acute rib fracture; or pathology.; ; Impression:; Bibasilar atelectasis and possible small pleural reaction.; No left rib fracture.; ; ; Signed by; Berry Jones MD 12/28/2016 08:04 A; Outcome: 21:46 Discharge ordered by Provider. sofia 22:00 Discharge Assessment: Patient awake, alert and oriented x 3. No cognitive and/or mb9 functional deficits noted. Patient verbalized understanding of disposition instructions. patient administered narcotics - no. The following High Risk Discharge criteria are identified: None. Discharged to home ambulatory. Condition: good Condition: stable Condition: improved. Discharge instructions given to patient, Instructed on discharge instructions, follow up and referral plans. medication usage, Demonstrated understanding of instructions, medications, Pt was receptive of discharge instructions/ teaching. Prescriptions given X 1. No special radiology studies were completed. Property :Personal belongings accompany Pt. 22:02 Patient left the ED. mb9 Addendum: 01/01/2017 11:14 Narrative: X-ray results from 12/27/2016 reviewed with Anton Caldwell HAMMERER TAB on 12/29/2016 with malvin Ortega, equipment cleaner and tester Nurse that day. Message left that day for patient to call us and be given recommendations of f/u with PCP for repeat CXR. No response back from patient and another message left at patient's residence ([phone]). Signatures: Dispatcher MedHost EDMS Jackie Patterson RN RN Paris Wharton, Reg Reg gb Nathaniel Caldwell, METAL TRADES INSTRUCTOR METAL TRADES INSTRUCTOR Carolann Perez gr2 Joni MonRN RN Maria T Elliott,ALEISHA RN ms18 Dashawn Holt,ALEISHA RN mb9 Roxane Guzman RN RN af2 Gary Juan, RAYMOND PATROL SERGEANT SHERIFF'S OFFICE Kathy Perez Chart Complete MTDD
--- NOTE | 2017-01-01 11:21 | EDDOCDS ---
Physician Documentation [facility] Name: Jin Chahal Age: 46 yrs Sex: Male : 1970 Arrival Date: 12/27/2016 Time: 20:23 Bed I8 / 16 Private MD: Cathleen Gleason Abdul Disposition: 12/27/16 21:46 Discharged to Home/Self Care. Impression: Intercostal pain. - Condition is Stable. - Discharge Instructions: Chest Wall Pain, Costochondritis. - Prescriptions for Ibuprofen 600 mg Oral Tablet - take 1 tablet by ORAL route every 6 hours As needed take with food; 30 tablet. - Medication Reconciliation, Local Pharmacy Hours form. - Follow up: Cathleen Gleason; When: 4 - 5 days; Reason: Recheck today's complaints, Continuance of care. - Problem is an ongoing problem. - Symptoms are unchanged. Historical: - Allergies: no known allergies; - Home Meds: 1. acetaminophen-codeine 300-30 mg oral tab every 4-6 hours 2. amoxicillin 875 mg Oral tab 1 tab every 12 hours - PMHx: Sleep Apnea w/ CPAP; - PSHx: Knee surgery- Right; - Social history: Smoking status: Patient states was never smoker of tobacco. No barriers to communication noted, The patient speaks fluent Italian. - Family history: No immediate family members are acutely ill. - : The pt / caregiver states he / she is not on anticoagulants. Home medication list is obtained from the patient. - Exposure Risk Screening:: None identified. Vital Signs: 12/27 20:25 BP 131 / 80; Pulse 90; Resp 18 S; Temp 99.6(O); Pulse Ox 96% on R/A; Weight 83.91 kg / gr2 184.99 lbs (R); Height 6 ft. 0 in. (182.88 cm) (R); Pain 7/10; 22:00 BP 137 / 68; Pulse 87; Resp 17; Temp 98.2(TE); Pulse Ox 99% ; mb9 20:25 Body Mass Index 25.09 (83.91 kg, 182.88 cm) gr2 MDM: 20:42 ECG WITH READING ER PHYS+CARDIAG ordered. EDMS 21:07 Ibuprofen 600 mg PO once ordered. ke 21:08 Rib Unilat W/PA Chest Only Ordered. EDMS 22:46 [facility] Payment Agreement was scanned into MEDEtherpad and attached to record. [facility] 22:46 Financial registration complete. [facility] 12/28 13:17 T-Sheet-- Draft Copy was scanned into MEDHOST and attached to record. gb 13:18 ECG/EKG was scanned into MEDHOST and attached to record. gb Administered Medications: 12/27 21:11 Drug: Ibuprofen 600 mg [ibuprofen 600 mg tablet (1 tabs)] Route: PO; af2 Signatures: Dispatcher MedHost EDMS Paris Arias, Reg Reg gb Nathaniel Caldwell, DIRECTOR OF STUDENT SERVICES Maria T Sprague RN RN ms18 Dashawn Holt RN RN mb9 Kathy Castaneda b Roxane Guzman RN af2 The chart was reviewed and I authenticate all verbal orders and agree with the evaluation and treatment provided.Attachments: 22:46 [facility] Payment Agreement [facility] 12/28 13:17 T-Sheet-- Draft Copy gb 13:18 ECG/EKG gb Chart Complete MTDD
--- NOTE | 2017-01-03 12:21 | EDDOCDS ---
Nurse's Notes [facility] Name: Reinier Montoya Age: 46 yrs Sex: Male : 1970 Arrival Date: 12/27/2016 Time: 20:23 Bed I8 / 16 Private MD: Cathleen Gleason Abdul Diagnosis: Intercostal pain Presentation: 12/27 20:37 Presenting complaint: Patient states: that he has some pain to his L rib cage that ms18 started last night. Pt also c/o cough and fever. Pt also reports some SOB and sweating. Adult Sepsis Screening: The patient does not have new or worsening altered mentation. Patient's respiratory rate is less than 22. Systolic blood pressure is greater than 100. Patient has a qSOFA score of 0- Negative Sepsis Screen. Suicide/Homicide risk assessment- the patient denies having any suicidal and/or homicidal ideations and does not present with any other emotional, behavioral or mental health complaints. Status: Patient is not a service associate or dependent. Transition of care: patient was not received from another setting of care. 20:37 Acuity: REMY Level 3 ms18 20:37 Method Of Arrival: Walkin/Carried/Asstd ms18 Triage Assessment: 20:37 General: Appears in no apparent distress, comfortable, Behavior is appropriate for age, ms18 cooperative, pleasant. Pain: Location: diaphragm, left lateral anterior chest and left breast Pain currently is 7 out of 10 on a pain scale. HIV screening NA for this visit Offered previously. Neurological: No deficits noted. Respiratory: Airway is patent Respiratory effort is even, unlabored. Derm: Skin is pink, warm & dry. Historical: - Allergies: no known allergies; - Home Meds: 1. acetaminophen-codeine 300-30 mg oral tab every 4-6 hours 2. amoxicillin 875 mg Oral tab 1 tab every 12 hours - PMHx: Sleep Apnea w/ CPAP; - PSHx: Knee surgery- Right; - Social history: Smoking status: Patient states was never smoker of tobacco. No barriers to communication noted, The patient speaks fluent Afghan. - Family history: No immediate family members are acutely ill. - : The pt / caregiver states he / she is not on anticoagulants. Home medication list is obtained from the patient. - Exposure Risk Screening:: None identified. Screenin:07 Screening information is obtained from the patient. Fall risk: No risks identified. mb9 Assistance ADL's: requires no assistance with activities of daily living. Abuse/DV Screen: The patient / caregiver reports he/she is: not in a situation that causes fear, pain or injury. Nutritional screening: No deficits noted. Advance Directives: There is no active DNR order. home support is adequate. Assessment: 21:07 General: Appears in no apparent distress, Behavior is appropriate for age, cooperative. mb9 Pain: Location: diaphragm Pain currently is 7 out of 10 on a pain scale. Respiratory: Airway is patent Respiratory effort is even, unlabored, Breath sounds are clear bilaterally. 22:00 Reassessment: Patient appears in no apparent distress at this time. General: Appears in mb9 no apparent distress, Behavior is fussy. Pain: Location: left lateral anterior chest Pain currently is 6 out of 10 on a pain scale. Respiratory: Airway is patent Respiratory effort is even, unlabored. Vital Signs: 20:25 BP 131 / 80; Pulse 90; Resp 18 S; Temp 99.6(O); Pulse Ox 96% on R/A; Weight 83.91 kg gr2 (R); Height 6 ft. 0 in. (182.88 cm) (R); Pain 7/10; 22:00 BP 137 / 68; Pulse 87; Resp 17; Temp 98.2(TE); Pulse Ox 99% ; mb9 20:25 Body Mass Index 25.09 (83.91 kg, 182.88 cm) gr2 Vitals: 20:25 Log In Time: December 27, 2016 at 20:25. gr2 ED Course: 20:24 Patient visited by Carolann Chinchilla. gr2 20:24 Cathleen Gleason is Private Physician. gr2 20:24 Patient moved to Waiting gr2 20:26 Patient visited by Carolann Chinchilla. gr2 20:26 Patient moved to Pre RCE gr2 20:38 Triage Initiated ms18 20:42 Patient moved to PR2 / 26 ms18 20:49 EKG done. (by ED staff). Reviewed by Rita Hodges DO. mdr 20:50 Patient visited by Gary Juan PCA. mdr 20:50 Patient moved to Pre RCE ms18 20:57 Patient moved to I8 / 16 jmb 20:58 ElsNathaniel woodard [facility]NP [facility] ke 20:58 Patient visited by Nathaniel Caldwell FNP. ke 20:59 Patient visited by Nathaniel Caldwell FNP. ke 21:07 The patient / caregiver is instructed regarding the plan of care and ED course. mb9 21:31 Patient visited by Nathaniel Caldwell FNP. ke 21:45 Cathleen Gleason is Referral Physician. ke 22:00 No IV's were initiated during this patient's visit. No procedures done that require mb9 assistance. 22:35 EKG-ADULT Returned. EDMS 22:46 [facility] Payment Agreement was scanned into Concert Window and attached to record. gjb 12/28 08:33 Rib Unilat W/PA Chest Only Returned. EDMS 13:17 T-Sheet-- Draft Copy was scanned into Concert Window and attached to record. gb 13:18 ECG/EKG was scanned into [employer] Window and attached to record. gb Administered Medications: 12/27 21:11 Drug: Ibuprofen 600 mg [ibuprofen 600 mg tablet (1 tabs)] Route: PO; af2 Order Results: Radiology Order: EKG-ADULT Test: EKG-ADULT REASON FOR EXAMINATION: Chest Pain; Stationary ECG Study; [facility] - ED; ; Test Date: 2016-12-27; Pat Name: REINIER MONTOYA Department:; Room: -; Gender: M Typist: ; : 1970 Requested By: RITA HOGDES; Order Number: [id number] Reading MD: Hugo Poon; Measurements; Intervals [place]; Rate: 80 P: 48; OK: 179 QRS: 28; QRSD: 89 T: 55; QT: 368; QTc: 426; Interpretive Statements; SINUS RHYTHM; ; ; Electronically Signed On 12-27-2016 22:03:41 EST by Hguo Poon; Radiology Order: Rib Unilat W/PA Chest Only Test: Rib Unilat W/PA Chest Only REASON FOR EXAMINATION: Chest Pain; Clinical: Chest pain; ; Technique: Frontal view of the chest with multiple views of the left; hemithorax.; ; Findings:; Frontal view of the chest demonstrates bibasilar atelectasis (left greater than; right) and small pleural effusion/reaction cannot be excluded. No pneumothorax.; Multiple views of the left hemithorax demonstrates no obvious acute rib fracture; or pathology.; ; Impression:; Bibasilar atelectasis and possible small pleural reaction.; No left rib fracture.; ; ; Signed by; Berry Jones MD 12/28/2016 08:04 A; Outcome: 21:46 Discharge ordered by Provider. sofia 22:00 Discharge Assessment: Patient awake, alert and oriented x 3. No cognitive and/or mb9 functional deficits noted. Patient verbalized understanding of disposition instructions. patient administered narcotics - no. The following High Risk Discharge criteria are identified: None. Discharged to home ambulatory. Condition: good Condition: stable Condition: improved. Discharge instructions given to patient, Instructed on discharge instructions, follow up and referral plans. medication usage, Demonstrated understanding of instructions, medications, Pt was receptive of discharge instructions/ teaching. Prescriptions given X 1. No special radiology studies were completed. Property :Personal belongings accompany Pt. 22:02 Patient left the ED. mb9 Addendum: 01/01/2017 11:14 Narrative: X-ray results from 12/27/2016 reviewed with Anton Caldwell PARAKEET RAISER on 12/29/2016 with malvin Ortega, grounds/maintenance specialist Nurse that day. Message left that day for patient to call us and be given recommendations of f/u with PCP for repeat CXR. No response back from patient and another message left at patient's residence ([phone]). Signatures: Dispatcher MedHost EDMS Jackie Patterson RN RN Paris Wharton, Reg Reg gb Nathaniel Caldwell, SALES MANAGEMENT INTERN SALES MANAGEMENT INTERN Carolann Perez gr2 Joni MonRN RN Maria T Elliott,ALEISHA RN ms18 Dashawn Holt,ALEISHA RN mb9 Roxane Guzman RN RN af2 Gary Juan, RAYMOND B[employer]OM [employer]ER Kathy Perez Chart Complete MTDD
--- NOTE | 2017-01-03 12:21 | EDDOCDS ---
Physician Documentation [facility] Name: Jin Chahal Age: 46 yrs Sex: Male : 1970 Arrival Date: 12/27/2016 Time: 20:23 Bed I8 / 16 Private MD: Cathleen Gleason Abdul Disposition: 12/27/16 21:46 Discharged to Home/Self Care. Impression: Intercostal pain. - Condition is Stable. - Discharge Instructions: Chest Wall Pain, Costochondritis. - Prescriptions for Ibuprofen 600 mg Oral Tablet - take 1 tablet by ORAL route every 6 hours As needed take with food; 30 tablet. - Medication Reconciliation, Local Pharmacy Hours form. - Follow up: Cathleen Gleason; When: 4 - 5 days; Reason: Recheck today's complaints, Continuance of care. - Problem is an ongoing problem. - Symptoms are unchanged. Historical: - Allergies: no known allergies; - Home Meds: 1. acetaminophen-codeine 300-30 mg oral tab every 4-6 hours 2. amoxicillin 875 mg Oral tab 1 tab every 12 hours - PMHx: Sleep Apnea w/ CPAP; - PSHx: Knee surgery- Right; - Social history: Smoking status: Patient states was never smoker of tobacco. No barriers to communication noted, The patient speaks fluent Albanian. - Family history: No immediate family members are acutely ill. - : The pt / caregiver states he / she is not on anticoagulants. Home medication list is obtained from the patient. - Exposure Risk Screening:: None identified. Vital Signs: 12/27 20:25 BP 131 / 80; Pulse 90; Resp 18 S; Temp 99.6(O); Pulse Ox 96% on R/A; Weight 83.91 kg / gr2 184.99 lbs (R); Height 6 ft. 0 in. (182.88 cm) (R); Pain 7/10; 22:00 BP 137 / 68; Pulse 87; Resp 17; Temp 98.2(TE); Pulse Ox 99% ; mb9 20:25 Body Mass Index 25.09 (83.91 kg, 182.88 cm) gr2 MDM: 20:42 ECG WITH READING ER PHYS+CARDIAG ordered. EDMS 21:07 Ibuprofen 600 mg PO once ordered. ke 21:08 Rib Unilat W/PA Chest Only Ordered. EDMS 22:46 [facility] Payment Agreement was scanned into MEDClew and attached to record. [facility] 22:46 Financial registration complete. [facility] 12/28 13:17 T-Sheet-- Draft Copy was scanned into MEDHOST and attached to record. gb 13:18 ECG/EKG was scanned into MEDHOST and attached to record. gb Administered Medications: 12/27 21:11 Drug: Ibuprofen 600 mg [ibuprofen 600 mg tablet (1 tabs)] Route: PO; af2 Signatures: Dispatcher MedHost EDMS Paris Arias, Reg Reg gb Nathaniel Caldwell, DIRECTOR OF PROGRAM MANAGEMENT Maria T Sprague RN RN ms18 Dashawn Holt RN RN mb9 Kathy Castaneda b Roxane Guzman RN af2 The chart was reviewed and I authenticate all verbal orders and agree with the evaluation and treatment provided.Attachments: 22:46 [facility] Payment Agreement [facility] 12/28 13:17 T-Sheet-- Draft Copy gb 13:18 ECG/EKG gb Chart Complete MTDD
--- NOTE | 2017-01-03 12:21 | EDDOCDS ---
Physician Documentation [facility] Name: Jin Chahal Age: 46 yrs Sex: Male : 1970 Arrival Date: 12/27/2016 Time: 20:23 Bed I8 / 16 Private MD: Cathleen Gleason Abdul Disposition: 12/27/16 21:46 Discharged to Home/Self Care. Impression: Intercostal pain. - Condition is Stable. - Discharge Instructions: Chest Wall Pain, Costochondritis. - Prescriptions for Ibuprofen 600 mg Oral Tablet - take 1 tablet by ORAL route every 6 hours As needed take with food; 30 tablet. - Medication Reconciliation, Local Pharmacy Hours form. - Follow up: Cathleen Gleason; When: 4 - 5 days; Reason: Recheck today's complaints, Continuance of care. - Problem is an ongoing problem. - Symptoms are unchanged. Historical: - Allergies: no known allergies; - Home Meds: 1. acetaminophen-codeine 300-30 mg oral tab every 4-6 hours 2. amoxicillin 875 mg Oral tab 1 tab every 12 hours - PMHx: Sleep Apnea w/ CPAP; - PSHx: Knee surgery- Right; - Social history: Smoking status: Patient states was never smoker of tobacco. No barriers to communication noted, The patient speaks fluent Hebrew. - Family history: No immediate family members are acutely ill. - : The pt / caregiver states he / she is not on anticoagulants. Home medication list is obtained from the patient. - Exposure Risk Screening:: None identified. Vital Signs: 12/27 20:25 BP 131 / 80; Pulse 90; Resp 18 S; Temp 99.6(O); Pulse Ox 96% on R/A; Weight 83.91 kg / gr2 184.99 lbs (R); Height 6 ft. 0 in. (182.88 cm) (R); Pain 7/10; 22:00 BP 137 / 68; Pulse 87; Resp 17; Temp 98.2(TE); Pulse Ox 99% ; mb9 20:25 Body Mass Index 25.09 (83.91 kg, 182.88 cm) gr2 MDM: 20:42 ECG WITH READING ER PHYS+CARDIAG ordered. EDMS 21:07 Ibuprofen 600 mg PO once ordered. ke 21:08 Rib Unilat W/PA Chest Only Ordered. EDMS 22:46 [facility] Payment Agreement was scanned into [id number] and attached to record. [facility] 22:46 Financial registration complete. [facility] 12/28 13:17 T-Sheet-- Draft Copy was scanned into MEDHOST and attached to record. gb 13:18 ECG/EKG was scanned into MEDHOST and attached to record. gb Administered Medications: 12/27 21:11 Drug: Ibuprofen 600 mg [ibuprofen 600 mg tablet (1 tabs)] Route: PO; af2 Signatures: Dispatcher MedHost EDMS Paris Arias, Reg Reg gb Nathaniel Caldwell, SALES AND MARKETING INTERN Maria T Sprague RN RN ms18 Dashawn Holt RN RN mb9 Kathy Castaneda b Roxane Guzman RN af2 The chart was reviewed and I authenticate all verbal orders and agree with the evaluation and treatment provided.Attachments: 22:46 [facility] Payment Agreement [facility] 12/28 13:17 T-Sheet-- Draft Copy gb 13:18 ECG/EKG gb Chart Complete MTDD
== END 2016-12-27 22:02 | disposition home or self-care (01) ==
LOC: M ED 20:23
DX: M94.0 Chondrocostal junction syndrome [Tietze] (principal); S29.011A Strain of muscle and tendon of front wall of thorax, initial encounter; X58.XXXA Exposure to other specified factors, initial encounter; Y92.9 Unspecified place or not applicable; Y93.9 Activity, unspecified; Y99.9 Unspecified external cause status; G47.30 Sleep apnea, unspecified

== ENCOUNTER → 2017-01-13 | Outpatient (CLI) | payer OTHER ==
[2017-01-13 09:42] LABS: MEAN CORPUSCULAR HEMOGLOBIN 29.5 pg (27.0-33.0); MEAN CORPUSCULAR HGB CONC 33.6 g/dl (32.0-36.5); MEAN CORPUSCULAR VOLUME 87.8 fl (80.0-96.0); RED CELL DISTRIBUTION WIDTH 12.7 % (11.5-14.5)
[2017-01-13 09:51] LABS: ALBUMIN 3.8 GM/DL (3.2-5.2); ALBUMIN/GLOBULIN RATIO 0.97 (1.00-1.93); ALKALINE PHOSPHATASE 55 U/L (45-117); ALT/SGPT 50 U/L (12-78); ANION GAP 8 MEQ/L (8-16); AST/SGOT 22 U/L (15-37); BILIRUBIN,TOTAL 0.4 MG/DL (0.2-1.0); BLOOD UREA NITROGEN 11 MG/DL (7-18); CALCIUM LEVEL 8.4 MG/DL (8.5-10.1); CARBON DIOXIDE LEVEL 27 MEQ/L (21-32); CHLORIDE LEVEL 104 MEQ/L (98-107); CHOLESTEROL LEVEL 157 MG/DL (<200); CREATININE FOR GFR 1.12 MG/DL (0.70-1.30); GLOMERULAR FILTRATION RATE > 60.0 (>60); GLUCOSE, FASTING 108 MG/DL (70-105); POTASSIUM SERUM 4.4 MEQ/L (3.5-5.1); SODIUM LEVEL 139 MEQ/L (136-145); TOTAL PROTEIN 7.7 GM/DL (6.4-8.2); TRIGLYCERIDES LEVEL 116 MG/DL (<150)
--- NOTE | 2017-01-14 07:26 | REP ---
TWO VIEW CHEST: COMPARISON: 12/27/2016 and 12/15/2011. There is no evidence of acute infiltrate. No pleural effusion is seen. The heart is normal in size. The mediastinal silhouette is unremarkable. The visualized osseous structures are intact. The previously noted bibasilar opacities have resolved. IMPRESSION: No acute pulmonary disease. Signed by Nish Blank MD 01/14/2017 01:53 P
== END ==
LOC: M LAB 08:45
PROVIDERS: ATTEND Family Medicine
DX: R09.1 Pleurisy (principal); D50.9 Iron deficiency anemia, unspecified

== ENCOUNTER → 2018-09-25 | Outpatient (CLI) | payer OTHER ==
[2018-09-25 08:11] LABS: HEMOGLOBIN 14.2 g/dl (13.5-17.5); MEAN CORPUSCULAR HGB CONC 32.3 g/dl (32.0-36.5); MEAN CORPUSCULAR VOLUME 89.8 fl (80.0-96.0); PLATELET COUNT, AUTOMATED 210 10^3/uL (150-450); RED CELL DISTRIBUTION WIDTH 13.5 % (11.5-14.5); WHITE BLOOD COUNT 5.4 10^3/uL (4.0-10.0)
[2018-09-25 08:51] LABS: ALBUMIN 3.7 GM/DL (3.2-5.2); ALBUMIN/GLOBULIN RATIO 0.97 (1.00-1.93); ALKALINE PHOSPHATASE 45 U/L (45-117); ALT/SGPT 41 U/L (12-78); ANION GAP 5 MEQ/L (8-16); AST/SGOT 26 U/L (7-37); BILIRUBIN,TOTAL 0.4 MG/DL (0.2-1.0); BLOOD UREA NITROGEN 18 MG/DL (7-18); CALCIUM LEVEL 8.6 MG/DL (8.5-10.1); CARBON DIOXIDE LEVEL 29 MEQ/L (21-32); CHLORIDE LEVEL 104 MEQ/L (98-107); CHOLESTEROL LEVEL 194 MG/DL (<200); CHOLESTEROL RISK RATIO 5.705 (<5); CREATININE FOR GFR 1.11 MG/DL (0.70-1.30); GLOMERULAR FILTRATION RATE > 60.0 (>60); GLUCOSE, FASTING 96 MG/DL (70-100); HDL CHOLESTEROL 34 MG/DL (>40); LDL CHOLESTEROL 92 MG/DL (<100); NON-HDL-C 160 MG/DL; POTASSIUM SERUM 4.7 MEQ/L (3.5-5.1); PROSTATIC SPECIFIC AG MONITOR 0.4 NG/ML (< 4.0); SODIUM LEVEL 138 MEQ/L (136-145); TOTAL PROTEIN 7.5 GM/DL (6.4-8.2); TRIGLYCERIDES LEVEL 340 MG/DL (<150)
[2018-09-25 09:32] LABS: TESTOSTERONE 372 NG/DL (241-827)
[2018-09-25 11:30] LABS: ESTIMATED AVERAGE GLUCOSE 108 MG/DL (60-110); HEMOGLOBIN A1c 5.4 %
== END ==
LOC: M LAB 07:28
DX: E03.9 Hypothyroidism, unspecified (principal); R53.83 Other fatigue; E78.5 Hyperlipidemia, unspecified
CPT/HCPCS: 71046

== ENCOUNTER → 2019-01-25 | Outpatient (CLI) | payer OTHER ==
[2019-01-25 10:43] LABS: HEMATOCRIT 44.7 % (42.0-52.0); HEMOGLOBIN 14.4 g/dl (13.5-17.5); MEAN CORPUSCULAR HGB CONC 32.2 g/dl (32.0-36.5); MEAN CORPUSCULAR VOLUME 90.1 fl (80.0-96.0); PLATELET COUNT, AUTOMATED 222 10^3/uL (150-450); RED BLOOD COUNT 4.96 10^6/uL (4.30-6.10); WHITE BLOOD COUNT 3.7 10^3/uL (4.0-10.0)
[2019-01-25 11:14] LABS: ALBUMIN 3.7 GM/DL (3.2-5.2); ALT/SGPT 27 U/L (12-78); BILIRUBIN,TOTAL 0.4 MG/DL (0.2-1.0); BLOOD UREA NITROGEN 13 MG/DL (7-18); CALCIUM LEVEL 8.5 MG/DL (8.5-10.1); CARBON DIOXIDE LEVEL 27 MEQ/L (21-32); CHLORIDE LEVEL 108 MEQ/L (98-107); CHOLESTEROL LEVEL 161 MG/DL (<200); CHOLESTEROL RISK RATIO 4.735 (<5); CREATININE FOR GFR 1.08 MG/DL (0.70-1.30); GLOMERULAR FILTRATION RATE > 60.0 (>56); GLUCOSE, FASTING 94 MG/DL (70-100); HDL CHOLESTEROL 34 MG/DL (>40); LDL CHOLESTEROL 107 MG/DL (<100); NON-HDL-C 127 MG/DL; POTASSIUM SERUM 4.8 MEQ/L (3.5-5.1); PROSTATIC SPECIFIC AG MONITOR 0.62 NG/ML (< 4.00); SODIUM LEVEL 139 MEQ/L (136-145); TOTAL PROTEIN 7.4 GM/DL (6.4-8.2); TRIGLYCERIDES LEVEL 100 MG/DL (<150)
[2019-01-25 11:30] LABS: HEMOGLOBIN A1c 5.4 %
[2019-01-27 10:19] LABS: TOTAL 25(OH) VITAMIN D 15.3 NG/ML (30.0-100.0)
[2019-01-27 10:20] LABS: TESTOSTERONE 318 NG/DL (241-827)
== END ==
LOC: M LAB 09:18
PROVIDERS: ATTEND Family Medicine
DX: R53.83 Other fatigue (principal); E03.9 Hypothyroidism, unspecified

== ENCOUNTER → 2019-12-05 | Outpatient (CLI) | payer OTHER ==
[2019-12-05 08:33] LABS: HEMOGLOBIN 14.6 g/dl (13.5-17.5); MEAN CORPUSCULAR HEMOGLOBIN 28.5 pg (27.0-33.0); MEAN CORPUSCULAR HGB CONC 31.1 g/dl (32.0-36.5); MEAN CORPUSCULAR VOLUME 91.6 fl (80.0-96.0); PLATELET COUNT, AUTOMATED 219 10^3/uL (150-450); RED BLOOD COUNT 5.13 10^6/uL (4.30-6.10); WHITE BLOOD COUNT 4.7 10^3/uL (4.0-10.0)
[2019-12-05 08:40] LABS: APPEARANCE, URINE CLEAR (CLEAR); BACTERIA, URINE AUTO NEGATIVE (NEGATIVE); BILIRUBIN, URINE AUTO NEGATIVE (NEGATIVE); BLOOD, URINE BLOOD NEGATIVE (NEGATIVE); COLOR, URINE YELLOW (YELLOW); GLUCOSE, URINE (UA) AUTO NEGATIVE (NEGATIVE); KETONE, URINE AUTO NEGATIVE (NEGATIVE); LEUKOCYTE ESTERASE, URINE AUTO NEGATIVE (NEGATIVE); MUCUS, URINE SMALL (NEGATIVE); NITRITE, URINE AUTO NEGATIVE (NEGATIVE); PROTEIN, URINE AUTO NEGATIVE (NEGATIVE); RBC, URINE AUTO 1 /HPF (0-3); SPECIFIC GRAVITY URINE AUTO 1.024 (1.002-1.035); SQUAMOUS EPITHELIAL CELL UR AU 0 /HPF (0-6); UROBILINOGEN, URINE AUTO 0.2 mg/dL (0.0-2.0); WBC, URINE AUTO 0 /HPF (0-3)
--- NOTE | 2019-12-05 08:49 | REP ---
PA and lateral chest: Comparisons 09/25/2018. The lung morel are clear. The cardiac size is normal. The bere, mediastinum, and skeletal structures are unremarkable. Impression: Negative PA and lateral chest. There is no interval change. Electronically Signed by Nish Perrin MD 12/05/2019 08:40 A
[2019-12-05 09:16] LABS: ALBUMIN 3.7 GM/DL (3.2-5.2); ALT/SGPT 30 U/L (12-78); BILIRUBIN,TOTAL 0.3 MG/DL (0.2-1.0); BLOOD UREA NITROGEN 19 MG/DL (7-18); CALCIUM LEVEL 8.7 MG/DL (8.5-10.1); CARBON DIOXIDE LEVEL 27 MEQ/L (21-32); CHLORIDE LEVEL 106 MEQ/L (98-107); CHOLESTEROL LEVEL 171 MG/DL (<200); CHOLESTEROL RISK RATIO 4.621 (<5); CREATININE FOR GFR 1.04 MG/DL (0.70-1.30); GLOMERULAR FILTRATION RATE > 60.0 (>56); GLUCOSE, FASTING 94 MG/DL (70-100); HDL CHOLESTEROL 37 MG/DL (>40); LDL CHOLESTEROL 108 MG/DL (<100); NON-HDL-C 134 MG/DL; POTASSIUM SERUM 4.8 MEQ/L (3.5-5.1); PROSTATIC SPECIFIC AG MONITOR 0.57 NG/ML (< 4.00); SODIUM LEVEL 139 MEQ/L (136-145); TOTAL PROTEIN 7.5 GM/DL (6.4-8.2); TRIGLYCERIDES LEVEL 131 MG/DL (<150)
[2019-12-05 09:49] LABS: HEMOGLOBIN A1c 5.2 %
[2019-12-05 11:01] LABS: TESTOSTERONE 272 NG/DL (241-827)
--- NOTE | 2019-12-06 08:08 | ECGEPIP ---
[facility] Test Date: 2019-12-05 Pat Name: REINIER MONTOYA Department: Room: - Gender: Male Child Protective Investigator: CATRINA : 1970 Requested By: Cathleen Vides Order Number: [id number] Reading MD: Steve Lancaster Measurements Intervals [place] Rate: 65 P: 71 [place]: 150 QRS: 47 QRSD: 88 T: 56 QT: 414 QTc: 431 Interpretive Statements Normal sinus rhythm Normal EKG No significant change when compared to prior tracing of 09/25/2018 Electronically Signed on 12-06-2019 8:07:50 EST by Steve Lancaster
== END ==
LOC: M LAB 07:32
PROVIDERS: ATTEND Family Medicine
DX: I10 Essential (primary) hypertension (principal); E03.9 Hypothyroidism, unspecified; R53.83 Other fatigue

== ENCOUNTER → 2020-04-14 | Outpatient (CLI) | payer OTHER ==
[2020-04-14 08:19] LABS: CHOLESTEROL RISK RATIO 4.542 (<5)
== END ==
LOC: M LAB 07:20
PROVIDERS: ATTEND Family Medicine
DX: I10 Essential (primary) hypertension (principal)

== ENCOUNTER → 2020-10-29 | Outpatient (CLI) | payer OTHER ==
[2020-10-29 07:46] LABS: HEMATOCRIT 44.3 % (42.0-52.0); HEMOGLOBIN 13.9 g/dl (13.5-17.5); MEAN CORPUSCULAR HEMOGLOBIN 28.5 pg (27.0-33.0); MEAN CORPUSCULAR HGB CONC 31.4 g/dl (32.0-36.5); PLATELET COUNT, AUTOMATED 219 10^3/uL (150-450); RED BLOOD COUNT 4.87 10^6/uL (4.30-6.10)
[2020-10-29 08:11] LABS: ALBUMIN 3.6 GM/DL (3.2-5.2); ALT/SGPT 35 U/L (12-78); BILIRUBIN,TOTAL 0.3 MG/DL (0.2-1.0); BLOOD UREA NITROGEN 18 MG/DL (7-18); CALCIUM LEVEL 8.3 MG/DL (8.5-10.1); CARBON DIOXIDE LEVEL 29 MEQ/L (21-32); CHLORIDE LEVEL 105 MEQ/L (98-107); CHOLESTEROL LEVEL 152 MG/DL (<200); CHOLESTEROL RISK RATIO 4.342 (<5); CREATININE FOR GFR 1.27 MG/DL (0.70-1.30); GLOMERULAR FILTRATION RATE > 60.0 (>56); GLUCOSE, FASTING 100 MG/DL (70-100); HDL CHOLESTEROL 35 MG/DL (>40); LDL CHOLESTEROL 97 MG/DL (<100); NON-HDL-C 117 MG/DL; POTASSIUM SERUM 4.5 MEQ/L (3.5-5.1); PROSTATIC SPECIFIC AG MONITOR 0.54 NG/ML (< 4.00); SODIUM LEVEL 139 MEQ/L (136-145); TOTAL PROTEIN 7.4 GM/DL (6.4-8.2); TRIGLYCERIDES LEVEL 98 MG/DL (<150)
[2020-10-29 09:08] LABS: TESTOSTERONE 337 NG/DL (241-827)
[2020-10-29 09:33] LABS: HEMOGLOBIN A1c 5.4 %
== END ==
LOC: M LAB 07:08
PROVIDERS: ATTEND Family Medicine
DX: R53.83 Other fatigue (principal)

== ENCOUNTER → 2021-05-26 | Outpatient (REF) | payer OTHER | LOC: M LAB REF 19:49 | PROVIDERS: ATTEND Physician Assistant | DX: M54.5 Low back pain (principal) ==

== ENCOUNTER → 2021-09-02 | Outpatient (CLI) | payer OTHER ==
[2021-09-02 08:35] LABS: HEMOGLOBIN 14.4 g/dl (13.5-17.5); MEAN CORPUSCULAR HEMOGLOBIN 29.4 pg (27.0-33.0); MEAN CORPUSCULAR HGB CONC 32.7 g/dl (32.0-36.5); MEAN CORPUSCULAR VOLUME 89.8 fl (80.0-96.0); PLATELET COUNT, AUTOMATED 211 10^3/uL (150-450); WHITE BLOOD COUNT 3.9 10^3/uL (4.0-10.0)
[2021-09-02 09:03] LABS: ALBUMIN 3.4 GM/DL (3.2-5.2); ALT/SGPT 28 U/L (12-78); BILIRUBIN,TOTAL 0.3 MG/DL (0.2-1.0); BLOOD UREA NITROGEN 16 MG/DL (7-18); CALCIUM LEVEL 9.1 MG/DL (8.5-10.1); CARBON DIOXIDE LEVEL 28 MEQ/L (21-32); CHLORIDE LEVEL 107 MEQ/L (98-107); CHOLESTEROL LEVEL 153 MG/DL (<200); CHOLESTEROL RISK RATIO 4.135 (<5); CREATININE FOR GFR 1.23 MG/DL (0.70-1.30); GLOMERULAR FILTRATION RATE > 60.0 (>56); GLUCOSE, FASTING 88 MG/DL (70-100); HDL CHOLESTEROL 37 MG/DL (>40); LDL CHOLESTEROL 79 MG/DL (<100); NON-HDL-C 116 MG/DL; POTASSIUM SERUM 4.5 MEQ/L (3.5-5.1); PROSTATIC SPECIFIC AG MONITOR 0.51 NG/ML (< 4.00); SODIUM LEVEL 139 MEQ/L (136-145); TOTAL PROTEIN 7.1 GM/DL (6.4-8.2); TRIGLYCERIDES LEVEL 187 MG/DL (<150)
[2021-09-02 09:29] LABS: TOTAL 25(OH) VITAMIN D 38.2 NG/ML (30.0-100.0)
[2021-09-02 09:30] LABS: TESTOSTERONE 366 NG/DL (241-827)
== END ==
LOC: M LAB 07:25
PROVIDERS: ATTEND Family Medicine
DX: D64.9 Anemia, unspecified (principal)

== ENCOUNTER → 2021-09-14 | Outpatient (CLI) | payer OTHER ==
[~2021-09-14] MED LIST: E-Z-GAS II EFFERVESCENT PACKET (SODIUM BICARB./CITRIC ACID/SIMETHICONE) As Ordered ONE; E-Z-HD 98% w/w 340GM SUSP BTL As Ordered ONE; E-Z-PAQUE 96% w/w SUSP 176GM BTL As Ordered ONE
--- NOTE | 2021-09-14 12:12 | REP ---
INDICATION: PAIN US FIRST X RAY 2ND. COMPARISON: None TECHNIQUE: Real-time sonographic evaluation of the right upper quadrant with Doppler FINDINGS: Multiple ultrasonographic images of the liver show the hepatic parenchymal echo texture to appear unremarkable. There are no focal masses. There is no intrahepatic ductal dilatation. The common bile duct measures approximately 4 mm in its greatest transverse dimension. Multiple ultrasonographic images of the gallbladder show no focal or diffuse gallbladder wall thickening. There are no echogenic foci within the gallbladder lumen, which casts acoustic shadows. There is no pericholecystic edema. Images of the pancreatic region show no gross abnormality. The imaged portion of the right kidney is unremarkable. IMPRESSION: Unremarkable right upper quadrant ultrasound. Accredited by the [employer] in General Ultrasound. <Electronically signed by Jerel Granados > 09/14/21 [id number]
--- NOTE | 2021-09-14 17:28 | REP ---
INDICATION: PAIN US FIRST X RAY 2ND. COMPARISON: None TECHNIQUE: This procedure was performed by WAI Schulte, under the direct supervision of Dr. Blank. Images were reviewed with Dr. Blank prior to dictation. Because the patient is status post Sharmaine-en-Y surgery liquid barium was given in the erect position as well as in the prone oblique position in order to perform a single contrast upper GI examination. FINDINGS: The desilverizer film shows no organomegaly or pathological masses. The intestinal gas pattern is unremarkable. The oral and pharyngeal stages of deglutition were unremarkable. Esophageal transport is prompt and efficient and there is no evidence of esophagitis, stricture, or mucosal ring. There is evidence of a small hiatal hernia. . The remaining stomach marie are normally outlined. There is free flow of contrast through the anastomosis into the small intestine. No stricture or ulcer is visualized. The visualized portion of the proximal small bowel appears normal in course and caliber. IMPRESSION: There is evidence of a small hiatal hernia, otherwise unremarkable upper GI series 0.7 minutes of fluoroscopy time was utilized for this procedure. Some fluoroscopic images are performed with last image hold technology. These images require no additional radiation. <Electronically signed by Theresa Yeung > 09/14/21 1615 <Electronically signed by Nish Blank > 09/14/21 [id number]
== END ==
LOC: M RAD 08:45
PROVIDERS: ATTEND Family Medicine
DX: K21.9 Gastro-esophageal reflux disease without esophagitis (principal); R10.9 Unspecified abdominal pain

== ENCOUNTER → 2021-12-29 | Outpatient (CLI) | payer OTHER | LOC: M RAD 11:33 | PROVIDERS: ATTEND Family Medicine | DX: M51.37 Other intervertebral disc degeneration, lumbosacral region (principal) ==

== ENCOUNTER → 2022-09-22 | Outpatient (CLI) | payer OTHER ==
[2022-09-22 07:38] LABS: HEMATOCRIT 45.1 % (42.0-52.0); HEMOGLOBIN 14.2 g/dl (13.5-17.5); MEAN CORPUSCULAR HEMOGLOBIN 29.3 pg (27.0-33.0); MEAN CORPUSCULAR HGB CONC 31.5 g/dl (32.0-36.5); MEAN CORPUSCULAR VOLUME 93.2 fl (80.0-96.0); PLATELET COUNT, AUTOMATED 200 10^3/uL (150-450); RED BLOOD COUNT 4.84 10^6/uL (4.30-6.10); WHITE BLOOD COUNT 4.4 10^3/uL (4.0-10.0)
[2022-09-22 08:20] LABS: ALBUMIN 3.7 GM/DL (3.2-5.2); ALT/SGPT 31 U/L (12-78); BILIRUBIN,TOTAL 0.4 MG/DL (0.2-1.0); BLOOD UREA NITROGEN 16 MG/DL (7-18); CALCIUM LEVEL 8.9 MG/DL (8.5-10.1); CARBON DIOXIDE LEVEL 27 MEQ/L (21-32); CHLORIDE LEVEL 106 MEQ/L (98-107); CHOLESTEROL LEVEL 164 MG/DL (<200); CHOLESTEROL RISK RATIO 4.205 (<5); CREATININE FOR GFR 1.08 MG/DL (0.70-1.30); GLOMERULAR FILTRATION RATE > 60.0 (>56); GLUCOSE, FASTING 104 MG/DL (70-100); HDL CHOLESTEROL 39 MG/DL (>40); LDL CHOLESTEROL 91 MG/DL (<100); NON-HDL-C 125 MG/DL; POTASSIUM SERUM 4.6 MEQ/L (3.5-5.1); PROSTATIC SPECIFIC AG MONITOR 0.54 NG/ML (< 4.00); SODIUM LEVEL 137 MEQ/L (136-145); TOTAL PROTEIN 7.4 GM/DL (6.4-8.2); TRIGLYCERIDES LEVEL 169 MG/DL (<150)
[2022-09-22 09:11] LABS: HEMOGLOBIN A1c 5.3 %
[2022-09-22 11:03] LABS: TESTOSTERONE 220 NG/DL (241-827)
== END ==
LOC: M LAB 07:02
PROVIDERS: ATTEND Family Medicine
DX: I10 Essential (primary) hypertension (principal); R53.83 Other fatigue

== ENCOUNTER → 2022-11-13 | Outpatient (CLI) | payer OTHER | LOC: M LABSMTC 09:35 | PROVIDERS: ATTEND Anesthesiology | DX: Z01.812 Encounter for preprocedural laboratory examination (principal); Z11.52 Encounter for screening for COVID-19 ==

== ENCOUNTER 2022-11-15 09:11 | Day surgery (SDC) | payer OTHER ==
[~2022-11-15] VITALS: Ht 180.3 cm; Wt 85.7 kg
[~2022-11-15 09:11] MED LIST changes: -E-Z-GAS II EFFERVESCENT PACKET (SODIUM BICARB./CITRIC ACID/SIMETHICONE) As Ordered ONE; -E-Z-HD 98% w/w 340GM SUSP BTL As Ordered ONE; -E-Z-PAQUE 96% w/w SUSP 176GM BTL As Ordered ONE; +NS 1,000 ML IV ONE
[2022-11-15] MEDS ORDERED: propofoL 200 MG/20 ML VIAL As Ordered ONE (10:08)
[2022-11-15] MEDS ORDERED: LIDOCAINE 2% 100MG/5ML SDV (FOR ANES.) As Ordered ONE (10:08)
[2022-11-15 10:50] VITALS: BP 112/60
== END 2022-11-15 10:55 | disposition home or self-care (01) ==
LOC: M OPP 09:11
PROVIDERS: ATTEND Internal Medicine Gastroenterology
DX: Z12.11 Encounter for screening for malignant neoplasm of colon (principal); K64.0 First degree hemorrhoids; G47.30 Sleep apnea, unspecified

== ENCOUNTER → 2023-06-13 | Outpatient (CLI) | payer OTHER ==
[2023-06-13 08:17] LABS: HEMOGLOBIN 14.2 g/dl (13.5-17.5); MEAN CORPUSCULAR HEMOGLOBIN 29.7 pg (27.0-33.0); MEAN CORPUSCULAR HGB CONC 32.3 g/dl (32.0-36.5); MEAN CORPUSCULAR VOLUME 92.1 fl (80.0-96.0); PLATELET COUNT, AUTOMATED 203 10^3/uL (150-450); RED BLOOD COUNT 4.78 10^6/uL (4.30-6.10); WHITE BLOOD COUNT 3.9 10^3/uL (4.0-10.0)
[2023-06-13 08:24] LABS: HEMOGLOBIN A1c 5.4 % (4.0-6.0)
[2023-06-13 08:41] LABS: THYROID STIMULATING HORMONE 2.368 uIU/ML (0.55-4.78); TOTAL 25(OH) VITAMIN D 41.3 NG/ML (20.0-100.0)
[2023-06-13 08:42] LABS: ALBUMIN 3.7 G/DL (3.2-5.2); ALKALINE PHOSPHATASE 50 U/L (46-116); ALT/SGPT 21 U/L (7.0-40); AST/SGOT 16 U/L (<34); BILIRUBIN,TOTAL 0.5 MG/DL (0.3-1.2); BLOOD UREA NITROGEN 19 MG/DL (9-23); CALCIUM LEVEL 8.8 MG/DL (8.5-10.1); CARBON DIOXIDE LEVEL 25 MMOL/L (20-31); CHLORIDE LEVEL 106 MMOL/L (98-107); CHOLESTEROL LEVEL 147 MG/DL (<200); CHOLESTEROL RISK RATIO 3.83 (<5); CREATININE FOR GFR 1.04 MG/DL (0.70-1.30); GLOMERULAR FILTRATION RATE > 60.0 (>56); GLUCOSE, FASTING 93 MG/DL (60-100); HDL CHOLESTEROL 38.3 MG/DL (>40); LDL CHOLESTEROL 78.3 MG/DL (<100); NON-HDL-C 108.7 MG/DL; POTASSIUM SERUM 4.9 MMOL/L (3.5-5.1); SODIUM LEVEL 139 MMOL/L (136-145); TRIGLYCERIDES LEVEL 152 MG/DL (<150)
[2023-06-13 08:43] LABS: RHEUMATOID FACTOR QUANT 18.7 IU/ML (<14)
[2023-06-13 08:44] LABS: TESTOSTERONE 325 NG/DL (241-827)
[2023-06-13 08:54] LABS: ERYTHROCYTE SEDIMENTATION RATE 30 mm/hr (0-20)
[2023-06-14 10:10] LABS: ANTINUCLEAR ANTIBODIES DIRECT Negative (Negative)
== END ==
LOC: M LAB 07:24
PROVIDERS: ATTEND Family Medicine
DX: D64.9 Anemia, unspecified (principal); R53.83 Other fatigue; E03.9 Hypothyroidism, unspecified

== ENCOUNTER → 2023-08-17 | Outpatient (CLI) | payer OTHER ==
[2023-08-17 07:55] LABS: HEMATOCRIT 43.4 % (42.0-52.0); HEMOGLOBIN 14.1 g/dl (13.5-17.5); MEAN CORPUSCULAR HEMOGLOBIN 29.4 pg (27.0-33.0); MEAN CORPUSCULAR HGB CONC 32.5 g/dl (32.0-36.5); MEAN CORPUSCULAR VOLUME 90.6 fl (80.0-96.0); PLATELET COUNT, AUTOMATED 215 10^3/uL (150-450); RED BLOOD COUNT 4.79 10^6/uL (4.30-6.10); WHITE BLOOD COUNT 3.8 10^3/uL (4.0-10.0)
[2023-08-17 08:10] LABS: HEMOGLOBIN A1c 4.9 % (4.0-6.0)
[2023-08-17 08:11] LABS: INR 1.02; PROTHROMBIN TIME 13.1 SECONDS (12.5-14.5)
[2023-08-17 08:32] LABS: ALBUMIN 3.7 G/DL (3.2-5.2); ALKALINE PHOSPHATASE 53 U/L (46-116); ALT/SGPT 25 U/L (7.0-40); AST/SGOT 15 U/L (<34); BILIRUBIN,TOTAL 0.5 MG/DL (0.3-1.2); BLOOD UREA NITROGEN 19 MG/DL (9-23); CALCIUM LEVEL 8.8 MG/DL (8.5-10.1); CARBON DIOXIDE LEVEL 29 MMOL/L (20-31); CHLORIDE LEVEL 107 MMOL/L (98-107); CHOLESTEROL LEVEL 141 MG/DL (<200); CREATININE FOR GFR 1.06 MG/DL (0.70-1.30); GLOMERULAR FILTRATION RATE > 60.0 (>56); GLUCOSE, FASTING 93 MG/DL (60-100); HDL CHOLESTEROL 37.1 MG/DL (>40); LDL CHOLESTEROL 78.3 MG/DL (<100); NON-HDL-C 103.9 MG/DL; POTASSIUM SERUM 4.9 MMOL/L (3.5-5.1); PROSTATIC SPECIFIC AG MONITOR 0.44 NG/ML (< 4.00); SODIUM LEVEL 139 MMOL/L (136-145); TESTOSTERONE 393 NG/DL (241-827); THYROID STIMULATING HORMONE 1.668 uIU/ML (0.55-4.78); TOTAL PROTEIN 6.9 G/DL (5.7-8.2); TRIGLYCERIDES LEVEL 128 MG/DL (<150)
== END ==
LOC: M RAD 07:12
PROVIDERS: ATTEND Family Medicine
DX: I10 Essential (primary) hypertension (principal); E03.9 Hypothyroidism, unspecified; R53.83 Other fatigue

== ENCOUNTER 2023-09-04 15:02 | Day surgery (SDC) | payer OTHER ==
[~2023-09-04] VITALS: Ht 180.3 cm; Wt 83.9 kg
[~2023-09-04 15:02] MED LIST changes: +CelecoXIB 400 MG CAP PO ONE; +LIDOCAINE 1% SDV 30ML VIAL As Ordered ONE; -NS 1,000 ML IV ONE; +OMEG10002 PO; +ceFAZolin SOD 2 GM in IV 1 EA IV ONE
[2023-09-04] MEDS ORDERED: LR 1,000 ML IV SCH ×2 (15:25→17:30)
[2023-09-04] MEDS ORDERED: HYDROmorphone HCL 2MG/ML 1ML VIAL As Ordered ONE (15:27)
[2023-09-04] MEDS ORDERED: LIDOCAINE 2% 100MG/5ML SDV (FOR ANES.) As Ordered ONE (15:31)
[2023-09-04] MEDS ORDERED: propofoL 200 MG/20 ML VIAL As Ordered ONE (15:32)
[2023-09-04] MEDS ORDERED: ROCURONIUM BROMIDE 50MG/5ML VIAL As Ordered ONE ×2 (15:32→16:07)
[2023-09-04] MEDS ORDERED: ONDANSETRON 4MG 2ML VIAL As Ordered ONE (15:32)
[2023-09-04] MEDS ORDERED: KETOROLAC 60MG 2ML VIAL As Ordered ONE (15:33)
[2023-09-04] MEDS ORDERED: MIDAZOLAM INJ 2MG/2ML VIAL As Ordered ONE (15:33)
[2023-09-04] MEDS ORDERED: SUGAMMADEX SODIUM 500 MG/5 ML VIAL (BRIDION) As Ordered ONE (17:08)
[2023-09-04] MEDS ORDERED: PHENYLephrine 500MCG 5ML (100MCG/ML) SYRINGE As Ordered ONE (17:09)
[2023-09-04] MEDS ORDERED: ePHEDrine SULFATE 25 MG/5 ML(5MG/ML) SYRINGE As Ordered ONE (17:09)
[2023-09-04] MEDS ORDERED: oxyCODONE 5MG TAB PO PRN (17:30)
[2023-09-04] MEDS ORDERED: ONDANSETRON 4MG 2ML VIAL IV PRN (17:30)
[2023-09-04] MEDS ORDERED: HYDROMORPHONE HCL 0.5 MG/ 0.5 ML SYRINGE IV PRN (17:30)
[2023-09-04] MEDS ORDERED: fentaNYL 100 MCG/2 ML INJECTION IV PRN (17:30)
[2023-09-04 18:25] VITALS: BP 125/81; TEMP 98.3; O2SAT 95
== END 2023-09-04 18:56 | disposition home or self-care (01) ==
LOC: M SDC 15:02
PROVIDERS: ATTEND Surgery
DX: K40.90 Unilateral inguinal hernia, without obstruction or gangrene, not specified as recurrent (principal); G47.33 Obstructive sleep apnea (adult) (pediatric); R00.1 Bradycardia, unspecified; K44.9 Diaphragmatic hernia without obstruction or gangrene; J30.2 Other seasonal allergic rhinitis
CPT/HCPCS: 49650; C1781; J0665; J0690; J1100; J1170; J1885; J2250; J2371; J2405; S2900

== ENCOUNTER → 2023-10-05 | Outpatient (CLI) | payer OTHER ==
[~2023-10-05] MED LIST changes: -CelecoXIB 400 MG CAP PO ONE; -LIDOCAINE 1% SDV 30ML VIAL As Ordered ONE; -ceFAZolin SOD 2 GM in IV 1 EA IV ONE
[2023-10-05 09:22] LABS: HEMATOCRIT 44.6 % (42.0-52.0); HEMOGLOBIN 14.7 g/dl (13.5-17.5); MEAN CORPUSCULAR HEMOGLOBIN 29.8 pg (27.0-33.0); MEAN CORPUSCULAR VOLUME 90.3 fl (80.0-96.0); PLATELET COUNT, AUTOMATED 210 10^3/uL (150-450); RED BLOOD COUNT 4.94 10^6/uL (4.30-6.10); WHITE BLOOD COUNT 3.5 10^3/uL (4.0-10.0)
[2023-10-05 09:27] LABS: ERYTHROCYTE SEDIMENTATION RATE 23 mm/hr (0-20)
[2023-10-05 09:46] LABS: URIC ACID 6.2 MG/DL (3.7-9.2)
[2023-10-05 09:50] LABS: RHEUMATOID FACTOR QUANT 21.6 IU/ML (<14)
[2023-10-06 12:07] LABS: ANTINUCLEAR ANTIBODIES DIRECT Negative (Negative)
== END ==
LOC: M LAB 08:12
PROVIDERS: ATTEND Family Medicine
DX: M19.90 Unspecified osteoarthritis, unspecified site (principal); R53.83 Other fatigue; D64.9 Anemia, unspecified

== ENCOUNTER → 2024-03-10 | Outpatient (REF) | payer OTHER ==
[2024-03-10 14:36] LABS: C REACTIVE PROTEIN QUANTITATIV < 0.40 MG/DL (<1.0)
[2024-03-10 14:40] LABS: HEPATITIS B SURFACE ANTIBODY NEGATIVE (POSITIVE)
[2024-03-10 15:13] LABS: HEPATITIS C VIRUS ABY INDEX 0.02 INDEX (<0.8)
== END ==
LOC: M SFHCRHEU 10:37
PROVIDERS: ATTEND Internal Medicine
DX: R76.8 Other specified abnormal immunological findings in serum (principal); M25.539 Pain in unspecified wrist

== ENCOUNTER → 2024-03-10 | Outpatient (CLI) | payer OTHER | LOC: M PLAIMG 15:30 | PROVIDERS: ATTEND Internal Medicine | DX: M75.82 Other shoulder lesions, left shoulder (principal) ==

== ENCOUNTER → 2024-09-13 | Outpatient (CLI) | payer OTHER ==
[2024-09-13 10:11] LABS: HEMATOCRIT 45.9 % (42.0-52.0); MEAN CORPUSCULAR HEMOGLOBIN 29.8 pg (27.0-33.0); MEAN CORPUSCULAR HGB CONC 32.7 g/dl (32.0-36.5); MEAN CORPUSCULAR VOLUME 91.3 fl (80.0-96.0); PLATELET COUNT, AUTOMATED 213 10^3/uL (150-450); RED BLOOD COUNT 5.03 10^6/uL (4.30-6.10); WHITE BLOOD COUNT 3.4 10^3/uL (4.0-10.0)
[2024-09-13 10:21] LABS: ERYTHROCYTE SEDIMENTATION RATE 30 mm/hr (0-20)
[2024-09-13 10:40] LABS: HEMOGLOBIN A1c 5.2 % (4.0-6.0); PROSTATIC SPECIFIC AG MONITOR 0.46 NG/ML (< 4.00)
[2024-09-13 10:46] LABS: TESTOSTERONE 323 NG/DL (241-827)
[2024-09-13 10:48] LABS: ALBUMIN 3.7 G/DL (3.2-5.2); ALKALINE PHOSPHATASE 50 U/L (40-129); ALT/SGPT 25 U/L (7.0-40); AST/SGOT 12 U/L (<34); BILIRUBIN,TOTAL 0.6 MG/DL (0.3-1.2); BLOOD UREA NITROGEN 13 MG/DL (9-23); CALCIUM LEVEL 9.7 MG/DL (8.5-10.1); CARBON DIOXIDE LEVEL 28 MMOL/L (20-31); CHLORIDE LEVEL 106 MMOL/L (98-107); CHOLESTEROL LEVEL 181 MG/DL (<200); CREATININE FOR GFR 1.01 MG/DL (0.70-1.30); GLOMERULAR FILTRATION RATE > 60.0 (>56); GLUCOSE, FASTING 95 MG/DL (60-100); HDL CHOLESTEROL 40.2 MG/DL (>40); LDL CHOLESTEROL 123.4 MG/DL (<100); NON-HDL-C 140.8 MG/DL; POTASSIUM SERUM 5.2 MMOL/L (3.5-5.1); SODIUM LEVEL 139 MMOL/L (136-145); TOTAL PROTEIN 7.4 G/DL (5.7-8.2); TRIGLYCERIDES LEVEL 87 MG/DL (<150)
== END ==
LOC: M RAD 08:13
PROVIDERS: ATTEND Family Medicine
DX: I10 Essential (primary) hypertension (principal); E03.9 Hypothyroidism, unspecified; R53.83 Other fatigue